=== PATIENT | female | born 1965 | race Two or more races ===

== ENCOUNTER → 2016-11-30 | Outpatient (REF) | payer MEDICAID ==
[2016-12-01 18:19] LABS: CONTROL LINE UCG INT CTR LINE PRESENT
== END ==
LOC: M SFHCCAPE 17:26
PROVIDERS: ATTEND Physician Assistant
DX: R10.2 Pelvic and perineal pain (principal)

== ENCOUNTER → 2017-01-30 | Outpatient (REF) | payer MEDICAID | LOC: M SFHCCAPE 09:51 | PROVIDERS: ATTEND Physician Assistant | DX: R73.01 Impaired fasting glucose (principal) ==

== ENCOUNTER → 2017-01-31 | Outpatient (REF) | payer MEDICAID ==
[2017-01-31 19:25] LABS: ALBUMIN 3.7 GM/DL (3.2-5.2); ALBUMIN/GLOBULIN RATIO 1.03 (1.00-1.93); ALKALINE PHOSPHATASE 81 U/L (45-117); ALT/SGPT 21 U/L (12-78); ANION GAP 6 MEQ/L (8-16); AST/SGOT 17 U/L (15-37); BILIRUBIN,TOTAL 0.5 MG/DL (0.2-1.0); BLOOD UREA NITROGEN 11 MG/DL (7-18); CALCIUM LEVEL 8.2 MG/DL (8.5-10.1); CARBON DIOXIDE LEVEL 26 MEQ/L (21-32); CHLORIDE LEVEL 109 MEQ/L (98-107); CHOLESTEROL LEVEL 199 MG/DL (<200); CREATININE FOR GFR 0.74 MG/DL (0.55-1.02); FREE T4 0.76 NG/DL (0.76-1.46); GLOMERULAR FILTRATION RATE > 60.0 (>58); GLUCOSE, FASTING 83 MG/DL (70-105); POTASSIUM SERUM 4.3 MEQ/L (3.5-5.1); SODIUM LEVEL 141 MEQ/L (136-145); TOTAL PROTEIN 7.3 GM/DL (6.4-8.2); TRIGLYCERIDES LEVEL 229 MG/DL (<150)
[2017-01-31 20:50] LABS: ADD MORPHOLOGY? NO; BASO # 0.1 K/mm3 (0.0-0.2); BASO % 1.7 % (0.0-1.0); EOS # 0.3 K/mm3 (0.0-0.50); EOS % 5.6 % (0.0-3.0); LARGE UNSTAINED CELL # 0.1 K/mm3 (0.0-0.4); LARGE UNSTAINED CELL % 1.7 % (0.0-4.0); LYMPH # 1.7 K/mm3 (1.5-4.5); LYMPH % 32.8 % (24.0-44.0); MEAN CORPUSCULAR HEMOGLOBIN 29.9 pg (27.0-33.0); MEAN CORPUSCULAR HGB CONC 33.7 g/dl (32.0-36.5); MEAN CORPUSCULAR VOLUME 88.7 fl (80.0-96.0); MONO # 0.3 K/mm3 (0.0-0.8); MONO % 5.6 % (0.0-5.0); NEUTROPHILS # 2.6 K/mm3 (1.8-7.7); NEUTROPHILS % 52.6 % (36.0-66.0); PLATELET COUNT, AUTOMATED 345 k/mm3 (150-450)
== END ==
LOC: M SFHCCAPE 08:25
PROVIDERS: ATTEND Physician Assistant
DX: R73.01 Impaired fasting glucose (principal)

== ENCOUNTER → 2017-02-22 | Outpatient (CLI) | payer OTHER ==
--- NOTE | 2017-02-22 11:26 | REP ---
LUMBAR SPINE, FIVE VIEWS: HISTORY: Back pain. There is no acute fracture or subluxation. The L3-4 through L5-S1 intervertebral discs are decreased in height consistent with disc degeneration. Osteophytes are present on L1-4. There is narrowing of the L5-S1 facet joints. IMPRESSION: Degenerative change as described above.
== END ==
LOC: M CLY 10:20
PROVIDERS: ATTEND Nurse Practitioner
DX: M54.5 Low back pain (principal)

== ENCOUNTER → 2017-04-20 | Outpatient (CLI) | payer OTHER ==
--- NOTE | 2017-04-20 12:37 | REP ---
Clinical: Pelvic pain with abnormal uterine bleeding. Technique: Transabdominal pelvic ultrasound followed by transvaginal examination for better evaluation of the endometrium and adnexa. Findings: Bladder is unremarkable and measures 9.6 x 6.4 x 8.3 cm. Heterogeneous anteverted uterus measures 7.9 x 4.2 x 4.9 cm and the endometrial complex measures 3.1 mm thickness. IUD is identified in central satisfactory position. Bilateral ovaries are normal in appearance. Right ovary measures 2.7 x 1.7 x 1.3 cm. Left ovary measures 2.6 x 1.7 x 2.3 cm and includes 1.3 cm dominant follicle. No pelvic fluid or adnexal mass lesions. Impression: Essentially normal pelvic ultrasound. IUD in satisfactory position. Signed by Jann Holliday MD 04/20/2017 12:28 P
== END ==
LOC: M RAD 11:43
PROVIDERS: ATTEND Physician Assistant
DX: R10.2 Pelvic and perineal pain (principal); N93.8 Other specified abnormal uterine and vaginal bleeding

== ENCOUNTER → 2017-04-26 | Outpatient (CLI) | payer OTHER ==
--- NOTE | 2017-04-26 15:29 | REP ---
MR LUMBAR SPINE WITHOUT CONTRAST: HISTORY: Degenerative disc disease. Decreased signal intensity on T2-weighted images is present in the L3-4 through L5-S1 intervertebral discs. The L3-4 and L5-S1 intervertebral discs are decreased in height. These findings are consistent with disc degeneration. There is no disc bulge or herniation at the L1-2 through L4-5 levels. The nerves exit the neural foramina without compression. A diffuse disc bulge is present at the L5-S1 level. There is no thecal sac compression. There is hypertrophy of the posterior articulating facets. There is compression of the right L5 nerve in the neural foramen. The left L5 nerve exits the neural foramen without compression. The conus medullaris is normal in appearance terminating at the level of the L1-2 intervertebral disc. Increased signal intensity on T2 weighted images is present in the endplates of the L5 and S1 vertebral bodies. This represents degenerative change. A hemangioma is present in the L2 vertebral body. IMPRESSION: Diffuse disc bulge at the L5-S1 level without thecal sac compression. There is compression of the right L5 nerve in the neural foramen. Signed by Alvaro Taylor MD 04/26/2017 03:34 P
== END ==
LOC: M RAD 13:43
PROVIDERS: ATTEND Physician Assistant
DX: M51.36 Other intervertebral disc degeneration, lumbar region (principal); M51.27 Other intervertebral disc displacement, lumbosacral region

== ENCOUNTER → 2017-06-01 | Outpatient (REF) | payer OTHER, MEDICAID | LOC: M SFHCWAGY 13:48 | DX: Z12.4 Encounter for screening for malignant neoplasm of cervix (principal) ==

== ENCOUNTER 2017-06-20 09:11 | Day surgery (SDC) | payer OTHER ==
[2017-06-20] MEDS: NS 1,000 ML IV (09:00)
[~2017-06-20 09:11] MED LIST: LIDOCAINE 2% INJ 100 MG/5 ML SDV (FOR ANES.) As Ordered; PROPOFOL 500 MG/50 ML VIAL As Ordered
[2017-06-20] MEDS ORDERED: PHENYLephrine HCL 500 MCG/5 ML (100MCG/ML) SYRINGE (J2370) As Ordered (10:05)
== END 2017-06-20 11:19 | disposition home or self-care (01) ==
LOC: M OPP 09:11
DX: Z12.11 Encounter for screening for malignant neoplasm of colon (principal); Z86.010 Personal history of colon polyps; C18.9 Malignant neoplasm of colon, unspecified; D12.2 Benign neoplasm of ascending colon; D12.3 Benign neoplasm of transverse colon; D12.5 Benign neoplasm of sigmoid colon; K57.30 Diverticulosis of large intestine without perforation or abscess without bleeding; R12 Heartburn; K21.9 Gastro-esophageal reflux disease without esophagitis; M19.90 Unspecified osteoarthritis, unspecified site; R21 Rash and other nonspecific skin eruption; F32.9 Major depressive disorder, single episode, unspecified; K59.00 Constipation, unspecified; R51 Headache; F17.210 Nicotine dependence, cigarettes, uncomplicated; Z79.899 Other long term (current) drug therapy; Z80.0 Family history of malignant neoplasm of digestive organs
CPT/HCPCS: 45385

== ENCOUNTER → 2017-06-28 | Outpatient (CLI) | payer OTHER ==
[~2017-06-28] MED LIST changes: +GLUCAGON FOR INJ 1 MG VIAL (J1610) As Ordered; +ISOVUE-370 76% 100ML VIAL (Q9967) As Ordered; -LIDOCAINE 2% INJ 100 MG/5 ML SDV (FOR ANES.) As Ordered; -PROPOFOL 500 MG/50 ML VIAL As Ordered; +VoLumen 0.1% SUSPENSION 450ML BOTTLE As Ordered
[2017-06-29 11:10] LABS: CARCINOEMBRYONIC ANTIGEN 1.9 NG/ML (<2.5)
== END ==
LOC: M LAB 10:42
DX: C18.2 Malignant neoplasm of ascending colon (principal); K80.20 Calculus of gallbladder without cholecystitis without obstruction
CPT/HCPCS: Q9967

== ENCOUNTER 2017-07-02 07:43 | Inpatient (IN) | payer OTHER ==
[2017-07-02] MEDS: ERTAPENEM SODIUM 1 GM in NS 50 ML IV (08:00)
[2017-07-02] MEDS: LR 1,000 ML IV ×3 (08:00→13:15)
[2017-07-02] MEDS ORDERED: ERTAPENEM 1 GM INJ (INVanz) (J1335) As Ordered (08:14)
[2017-07-02] MEDS ORDERED: HEPARIN SOD (PORCINE) 5000 UNITS/ML VIAL As Ordered (08:36)
[2017-07-02] MEDS ORDERED: SCOPOLAMINE 1MG TRANSDERMAL PATCH As Ordered (08:38)
[2017-07-02] MEDS ORDERED: ONDANSETRON 4MG/2ML VIAL (J2405) As Ordered ×2 (08:38→10:33)
[2017-07-02] MEDS ORDERED: PROPOFOL 200 MG/20 ML VIAL As Ordered (08:39)
[2017-07-02] MEDS ORDERED: dexameTHASONE 4 MG/ML 1ML VIAL (J1100) As Ordered (08:39)
[2017-07-02] MEDS ORDERED: ROCURONIUM BROMIDE 50 MG/5 ML VIAL As Ordered ×2 (08:39→10:53)
[2017-07-02] MEDS ORDERED: fentaNYL 250 MCG/5 ML INJECTION (J3010) As Ordered (08:39)
[2017-07-02] MEDS ORDERED: MIDAZOLAM INJ 2 MG/2 ML VIAL (J2250) As Ordered (08:40)
[2017-07-02] MEDS ORDERED: LIDOCAINE 2% INJ 100 MG/5 ML SYRINGE As Ordered (08:42)
[2017-07-02] MEDS: ALVIMOPAN 12 MG CAPSULE (ENTEREG) PO ×2 (08:58→21:43)
[2017-07-02] MEDS: ONDANSETRON 4MG/2ML VIAL (J2405) IV ×2 (08:58→09:15)
[2017-07-02 09:05] LABS: CONTROL LINE UCG INT CTR LINE PRESENT; URINE PREG TEST NEGATIVE (NEGATIVE)
[2017-07-02] MEDS: SCOPOLAMINE 1MG TRANSDERMAL PATCH TOP (09:15)
[2017-07-02] MEDS: HEPARIN SOD (PORCINE) 5000 UNITS/ML VIAL SQ (09:30)
[2017-07-02] MEDS: LIDOCAINE 1% MDV 20ML VIAL As Ordered (09:46)
[2017-07-02] MEDS: BUPIVACAINE HCL 0.25% 10 ML VIAL As Ordered ×2 (09:46→09:50)
[2017-07-02] MEDS ORDERED: NEOSTIGMINE 10 MG/10 ML VIAL (J2710) As Ordered (10:33)
[2017-07-02] MEDS ORDERED: diphenhydrAMINE INJ 50MG/ML VIAL (J1200) As Ordered (10:33)
[2017-07-02] MEDS ORDERED: GLYCOPYRROLATE INJ 0.2 MG/ML 2 ML VIAL As Ordered (10:33)
[2017-07-02] MEDS ORDERED: HYDROmorphone HCL 2 MG/ML 1ML VIAL (J1170) As Ordered (10:35)
[2017-07-02] MEDS ORDERED: KETOROLAC 60 MG/2 ML VIAL (J1885) As Ordered (12:10)
[2017-07-02] MEDS: BUPIVACAINE LIPOSOME/PF 1.3% 20 ML VIAL (13.3MG/ML)(EXPAREL) As Ordered (12:30)
[2017-07-02] MEDS ORDERED: ONDANSETRON 4MG/2ML VIAL (J2405) IV ×2 (13:00→13:15)
[2017-07-02] MEDS ORDERED: ACETAMINOPHEN TAB 650MG DOSE (2X325MG) PO (13:00)
[2017-07-02] MEDS ORDERED: MORPHINE 4 MG/ML 1ML VIAL (J2270) IV (13:00)
[2017-07-02] MEDS ORDERED: CYCLOBENZAPRINE 10 MG TAB PO (13:00)
[2017-07-02] MEDS ORDERED: OMEPRAZOLE 20 MG CAP PO (13:00)
[2017-07-02] MEDS: HYDROmorphone HCL 1 MG/ML SYRINGE (J1170) IV ×2 (13:08→13:20)
[2017-07-02] MEDS ORDERED: fentaNYL 100 MCG/2 ML INJECTION (J3010) IV (13:15)
[2017-07-02] MEDS: NORCO, ANEXSIA 5/325MG TABLET (HYDROcodone/ACETAMINOPHEN) PO (13:48)
[2017-07-02] MEDS: KETOROLAC 30 MG/ML VIAL (J1885) IV (17:26)
[2017-07-02] MEDS: HEPARIN SOD (PORCINE) 5000 UNITS/ML VIAL SC (21:43)
[2017-07-03] MEDS: LR 1,000 ML IV ×2 (01:05→08:51)
[2017-07-03] MEDS: KETOROLAC 30 MG/ML VIAL (J1885) IV ×3 (01:07→20:02)
[2017-07-03] MEDS: NORCO, ANEXSIA 5/325MG TABLET (HYDROcodone/ACETAMINOPHEN) PO ×2 (02:00→06:38)
[2017-07-03 06:29] LABS: BASO % 0.3 % (0.0-1.0); HEMATOCRIT 35.4 % (36.0-47.0); IMMATURE GRANULOCYTE % 0.3 % (0-3.0); LYMPH # 2.1 10^3/uL (1.5-4.5); LYMPH % 20.8 % (24.0-44.0); MEAN CORPUSCULAR HEMOGLOBIN 29.5 pg (27.0-33.0); MEAN CORPUSCULAR HGB CONC 33.9 g/dl (32.0-36.5); MONO # 0.9 10^3/uL (0.0-0.8); MONO % 8.7 % (0.0-5.0); NEUTROPHILS # 6.9 10^3/uL (1.8-7.7); NEUTROPHILS % 69.9 % (36.0-66.0); PLATELET COUNT, AUTOMATED 273 10^3/uL (150-450); RED BLOOD COUNT 4.07 10^6/uL (4.00-5.40); RED CELL DISTRIBUTION WIDTH 13.3 % (11.5-14.5); WHITE BLOOD COUNT 9.9 10^3/uL (4.0-10.0)
[2017-07-03] MEDS: HEPARIN SOD (PORCINE) 5000 UNITS/ML VIAL SC ×3 (06:36→21:14)
[2017-07-03 06:43] LABS: ANION GAP 6 MEQ/L (8-16); BLOOD UREA NITROGEN 5 MG/DL (7-18); CALCIUM LEVEL 7.7 MG/DL (8.5-10.1); CARBON DIOXIDE LEVEL 27 MEQ/L (21-32); CHLORIDE LEVEL 110 MEQ/L (98-107); CREATININE FOR GFR 0.74 MG/DL (0.55-1.30); GLOMERULAR FILTRATION RATE > 60.0 (>58); GLUCOSE, FASTING 103 MG/DL (70-100); POTASSIUM SERUM 4.1 MEQ/L (3.5-5.1); SODIUM LEVEL 143 MEQ/L (136-145)
[2017-07-03] MEDS: INFLUENZA QUADRIVALENT PF VACCINE 0.5ML SYRINGE (90686) IM (09:22)
[2017-07-03] MEDS: ALVIMOPAN 12 MG CAPSULE (ENTEREG) PO ×2 (09:22→21:13)
[2017-07-04] MEDS: NORCO, ANEXSIA 5/325MG TABLET (HYDROcodone/ACETAMINOPHEN) PO ×4 (00:25→22:57)
[2017-07-04] MEDS: HEPARIN SOD (PORCINE) 5000 UNITS/ML VIAL SC ×3 (05:27→22:12)
[2017-07-04] MEDS: ALVIMOPAN 12 MG CAPSULE (ENTEREG) PO ×2 (09:04→20:10)
[2017-07-04] MEDS: KETOROLAC 30 MG/ML VIAL (J1885) IV (11:00)
[2017-07-05] MEDS: NORCO, ANEXSIA 5/325MG TABLET (HYDROcodone/ACETAMINOPHEN) PO ×2 (05:13→09:26)
[2017-07-05] MEDS: HEPARIN SOD (PORCINE) 5000 UNITS/ML VIAL SC (05:14)
[2017-07-05 06:41] LABS: BASO # 0.1 10^3/uL (0.0-0.2); BASO % 0.7 % (0.0-1.0); EOS # 0.3 10^3/uL (0.0-0.50); EOS % 4.1 % (0.0-3.0); HEMOGLOBIN 11.4 g/dl (12.0-16.0); IMMATURE GRANULOCYTE % 0.3 % (0-3.0); LYMPH # 1.9 10^3/uL (1.5-4.5); MEAN CORPUSCULAR HEMOGLOBIN 29.1 pg (27.0-33.0); MEAN CORPUSCULAR HGB CONC 33.5 g/dl (32.0-36.5); MEAN CORPUSCULAR VOLUME 86.7 fl (80.0-96.0); MONO # 0.5 10^3/uL (0.0-0.8); MONO % 7.2 % (0.0-5.0); NEUTROPHILS # 4.4 10^3/uL (1.8-7.7); NEUTROPHILS % 61.7 % (36.0-66.0); PLATELET COUNT, AUTOMATED 258 10^3/uL (150-450); RED BLOOD COUNT 3.92 10^6/uL (4.00-5.40); RED CELL DISTRIBUTION WIDTH 13.2 % (11.5-14.5); WHITE BLOOD COUNT 7.1 10^3/uL (4.0-10.0)
[2017-07-05] MEDS: ALVIMOPAN 12 MG CAPSULE (ENTEREG) PO (08:48)
== END 2017-07-05 10:24 | disposition home or self-care (01) | DRG 221 ==
LOC: M OR 07:43 → M MSPAV 15:19
PROC: 0DTF4ZZ Resection of Right Large Intestine, Percutaneous Endoscopic Approach (ICD-10-PCS; principal; 2017-07-02 08:30)
DX: C18.2 Malignant neoplasm of ascending colon (principal); F17.200 Nicotine dependence, unspecified, uncomplicated; K21.9 Gastro-esophageal reflux disease without esophagitis

== ENCOUNTER → 2017-07-06 | Outpatient (CLI) | payer OTHER | LOC: M RAD 11:53 | DX: C18.9 Malignant neoplasm of colon, unspecified (principal) | CPT/HCPCS: 71046 ==

== ENCOUNTER → 2017-07-06 | Outpatient (REF) | payer OTHER ==
[2017-07-06 13:35] LABS: INR 0.88
[2017-07-06 13:36] LABS: PARTIAL THROMBOPLASTIN TIME 27.7 SECONDS (26.8-37.9)
[2017-07-06 13:51] LABS: CARCINOEMBRYONIC ANTIGEN 1.5 NG/ML (<2.5)
== END ==
LOC: M LAB REF 12:41
DX: C18.9 Malignant neoplasm of colon, unspecified (principal)

== ENCOUNTER → 2017-07-10 | Outpatient (CLI) | payer OTHER ==
[~2017-07-10] MED LIST changes: -GLUCAGON FOR INJ 1 MG VIAL (J1610) As Ordered; +ISOVUE-300 61% 50ML VIAL (Q9967) As Ordered; -ISOVUE-370 76% 100ML VIAL (Q9967) As Ordered; +LIDOCAINE 2% MDV 20 ML VIAL As Ordered; +MIDAZOLAM INJ 2 MG/2 ML VIAL (J2250) As Ordered; -VoLumen 0.1% SUSPENSION 450ML BOTTLE As Ordered; +ceFAZolin 1GM INJ (J0690 PER 500MG) As Ordered; +fentaNYL 100 MCG/2 ML INJECTION (J3010) As Ordered
== END | disposition home or self-care (01) ==
LOC: M IRPRO 12:38
DX: C18.9 Malignant neoplasm of colon, unspecified (principal)
CPT/HCPCS: 36561

== ENCOUNTER → 2017-09-24 | Outpatient (REF) | payer OTHER, MEDICAID ==
[2017-09-24 14:06] LABS: MAGNESIUM LEVEL 2.4 MG/DL (1.8-2.4)
== END ==
LOC: M LAB REF 13:31
DX: C18.2 Malignant neoplasm of ascending colon (principal)

== ENCOUNTER → 2017-12-05 | Outpatient (REF) | payer OTHER | LOC: M SFHCCAPE 15:05 | DX: J02.9 Acute pharyngitis, unspecified (principal) ==

== ENCOUNTER → 2018-02-14 | Outpatient (REF) | payer OTHER | LOC: M SFHCCAPE 11:09 | DX: R10.13 Epigastric pain (principal); R19.7 Diarrhea, unspecified; R11.2 Nausea with vomiting, unspecified; K80.20 Calculus of gallbladder without cholecystitis without obstruction ==

== ENCOUNTER → 2018-02-14 | Outpatient (CLI) | payer OTHER ==
[2018-02-14 14:19] LABS: BASO # 0.1 10^3/uL (0.0-0.2); BASO % 1.3 % (0.0-1.0); EOS # 0.2 10^3/uL (0.0-0.50); EOS % 4.4 % (0.0-3.0); HEMATOCRIT 46.2 % (36.0-47.0); HEMOGLOBIN 15.2 g/dl (12.0-15.5); LYMPH # 1.6 10^3/uL (1.5-4.5); LYMPH % 34.9 % (24.0-44.0); MEAN CORPUSCULAR HEMOGLOBIN 30.8 pg (27.0-33.0); MEAN CORPUSCULAR HGB CONC 32.9 g/dl (32.0-36.5); MEAN CORPUSCULAR VOLUME 93.7 fl (80.0-96.0); MONO # 0.5 10^3/uL (0.0-0.8); MONO % 9.8 % (0.0-5.0); NEUTROPHILS # 2.3 10^3/uL (1.8-7.7); NEUTROPHILS % 49.6 % (36.0-66.0); PLATELET COUNT, AUTOMATED 238 10^3/uL (150-450); RED BLOOD COUNT 4.93 10^6/uL (4.00-5.40); RED CELL DISTRIBUTION WIDTH 12.8 % (11.5-14.5); WHITE BLOOD COUNT 4.6 10^3/uL (4.0-10.0)
[2018-02-14 14:55] LABS: ALBUMIN 3.8 GM/DL (3.2-5.2); ALBUMIN/GLOBULIN RATIO 0.95 (1.00-1.93); ALKALINE PHOSPHATASE 168 U/L (45-117); ALT/SGPT 43 U/L (12-78); AMYLASE 29 U/L (25-115); ANION GAP 8 MEQ/L (8-16); AST/SGOT 36 U/L (7-37); BILIRUBIN,TOTAL 0.6 MG/DL (0.2-1.0); BLOOD UREA NITROGEN 11 MG/DL (7-18); CALCIUM LEVEL 8.8 MG/DL (8.5-10.1); CARBON DIOXIDE LEVEL 26 MEQ/L (21-32); CHLORIDE LEVEL 107 MEQ/L (98-107); CREATININE FOR GFR 0.84 MG/DL (0.55-1.30); GLOMERULAR FILTRATION RATE > 60.0 (>51); GLUCOSE, FASTING 86 MG/DL (70-100); LIPASE 272 U/L (73-393); POTASSIUM SERUM 4.6 MEQ/L (3.5-5.1); SODIUM LEVEL 141 MEQ/L (136-145); THYROID STIMULATING HORMONE 0.415 uIU/ML (0.358-3.740); TOTAL PROTEIN 7.8 GM/DL (6.4-8.2)
== END ==
LOC: M RAD 13:08
DX: R10.13 Epigastric pain (principal); R19.7 Diarrhea, unspecified; R11.2 Nausea with vomiting, unspecified; K80.20 Calculus of gallbladder without cholecystitis without obstruction
CPT/HCPCS: 76705

== ENCOUNTER 2018-03-15 06:49 | Day surgery (SDC) | payer OTHER ==
[2018-03-15] MEDS ORDERED: LR 1,000 ML IV ×2 (07:00→11:30)
[2018-03-15] MEDS ORDERED: fentaNYL 250 MCG/5 ML INJECTION (J3010) As Ordered (08:35)
[2018-03-15] MEDS ORDERED: PROPOFOL 200 MG/20 ML VIAL As Ordered (08:35)
[2018-03-15] MEDS ORDERED: LIDOCAINE 2% INJ 100 MG/5 ML SDV (FOR ANES.) As Ordered (08:35)
[2018-03-15] MEDS ORDERED: ROCURONIUM BROMIDE 50 MG/5 ML VIAL As Ordered (08:35)
[2018-03-15] MEDS ORDERED: dexameTHASONE 4 MG/ML 1ML VIAL (J1100) As Ordered (08:35)
[2018-03-15] MEDS ORDERED: ONDANSETRON 4MG/2ML VIAL (J2405) As Ordered (08:35)
[2018-03-15] MEDS ORDERED: MIDAZOLAM INJ 2 MG/2 ML VIAL (J2250) As Ordered (08:36)
[2018-03-15] MEDS: AMPICILLIN SOD/SULBACTAM SOD 3 GM in D5W MINI-BAG PLUS 100 ML IV (09:05)
[2018-03-15] MEDS ORDERED: NEOSTIGMINE 10 MG/10 ML VIAL (J2710) As Ordered (09:36)
[2018-03-15] MEDS ORDERED: GLYCOPYRROLATE INJ 0.2 MG/ML 2 ML VIAL As Ordered (09:36)
[2018-03-15] MEDS ORDERED: KETOROLAC 60 MG/2 ML VIAL (J1885) As Ordered (09:36)
[2018-03-15] MEDS ORDERED: HYDROmorphone HCL 2 MG/ML 1ML VIAL (J1170) As Ordered (09:36)
[2018-03-15] MEDS: BUPIVACAINE HCL 0.25% 30 ML VIAL As Ordered (09:40)
[2018-03-15] MEDS: LIDOCAINE 1% SDV INJ 30 ML VIAL As Ordered (09:40)
[2018-03-15] MEDS ORDERED: NORCO, ANEXSIA 5/325MG TABLET (HYDROcodone/ACETAMINOPHEN) PO ×2 (11:30)
[2018-03-15] MEDS ORDERED: ONDANSETRON 4MG/2ML VIAL (J2405) IV ×2 (11:30)
[2018-03-15] MEDS ORDERED: KETOROLAC 30 MG/ML VIAL (J1885) IV (11:30)
[2018-03-15] MEDS ORDERED: MORPHINE 10 MG/ML 1ML VIAL (J2270) IV (11:30)
[2018-03-15] MEDS ORDERED: PERCOCET 5MG/325MG TAB As Ordered (11:48)
[2018-03-15] MEDS: fentaNYL 100 MCG/2 ML INJECTION (J3010) IV ×2 (11:50→11:55)
[2018-03-15] MEDS: PERCOCET 5MG/325MG TAB PO ×2 (11:50→13:32)
== END 2018-03-15 14:10 | disposition home or self-care (01) ==
LOC: M SDC 06:49
DX: K80.10 Calculus of gallbladder with chronic cholecystitis without obstruction (principal); C18.2 Malignant neoplasm of ascending colon; M12.9 Arthropathy, unspecified; M51.9 Unspecified thoracic, thoracolumbar and lumbosacral intervertebral disc disorder; F32.9 Major depressive disorder, single episode, unspecified; R51 Headache; R05 Cough; R06.83 Snoring; K21.9 Gastro-esophageal reflux disease without esophagitis; K59.1 Functional diarrhea; Z91.048 Other nonmedicinal substance allergy status; Z72.0 Tobacco use; Z86.010 Personal history of colon polyps; Z92.21 Personal history of antineoplastic chemotherapy; Z97.5 Presence of (intrauterine) contraceptive device
CPT/HCPCS: 47562

== ENCOUNTER → 2018-04-26 | Outpatient (CLI) | payer OTHER ==
[~2018-04-26] MED LIST changes: +GASTROGRAFIN SOLUTION 30ML (Q9963) As Ordered; -ISOVUE-300 61% 50ML VIAL (Q9967) As Ordered; +ISOVUE-370 76% 100ML VIAL (Q9967) As Ordered; -LIDOCAINE 2% MDV 20 ML VIAL As Ordered; -MIDAZOLAM INJ 2 MG/2 ML VIAL (J2250) As Ordered; -ceFAZolin 1GM INJ (J0690 PER 500MG) As Ordered; -fentaNYL 100 MCG/2 ML INJECTION (J3010) As Ordered
== END ==
LOC: M RAD 15:34
DX: C18.9 Malignant neoplasm of colon, unspecified (principal)
CPT/HCPCS: Q9963

== ENCOUNTER 2018-08-28 07:03 | Day surgery (SDC) | payer OTHER ==
[~2018-08-28] VITALS: Ht 152.4 cm; Wt 76.7 kg
[~2018-08-28 07:03] MED LIST changes: +AUGM875T28 PO; +CLAR10CA3 PO; +CYCL10TA PO; +GABA-1171 PO; -GASTROGRAFIN SOLUTION 30ML (Q9963) As Ordered; +HYDR-3715 PO; +HYDR25OIN TOP; +IBUP200C25 PO; +IMOD2TAB16 PO; -ISOVUE-370 76% 100ML VIAL (Q9967) As Ordered; +MIRE1IUD IU; +NS 1,000 ML IV ONE; +OMEP20CA3 PO; +TYLE325T5 PO
[2018-08-28] MEDS ORDERED: LIDOCAINE 2% MDV 20 ML VIAL As Ordered ONE (08:23)
[2018-08-28] MEDS ORDERED: PROPOFOL 200 MG/20 ML VIAL As Ordered ONE (08:23)
--- NOTE | 2018-08-28 08:51 | ROOR ---
Patient Name: Cheryl Rivera Procedure Date: 08/28/2018 8:02 AM Date of : 1965 Age: 52 Room: [facility] Gender: Female Note Status: Finalized Procedure: Colonoscopy Indications: High risk colon cancer surveillance: Personal history of colon cancer Providers: Isiaah Gruber MD Referring MD: EARL Rendon pa-c Requesting Provider: Medicines: Monitored Anesthesia Care Complications: No immediate complications. Procedure: Pre-Anesthesia Assessment: - Prior to the procedure, a History and Physical was performed, and patient medications and allergies were reviewed. The patient is competent. The risks and benefits of the procedure and the sedation options and risks were discussed with the patient. All questions were answered and informed consent was obtained. Patient identification and proposed procedure were verified by the physician, the nurse and the anesthesiologist in the procedure room. Mental Status Examination: alert and oriented. Airway Examination: normal oropharyngeal airway and neck mobility. Respiratory Examination: clear to auscultation. CV Examination: normal. Prophylactic Antibiotics: The patient does not require prophylactic antibiotics. Prior Anticoagulants: The patient has taken no previous anticoagulant or antiplatelet agents. ASA Grade Assessment: III - A patient with severe systemic disease. After reviewing the risks and benefits, the patient was deemed in satisfactory condition to undergo the procedure. The anesthesia plan was to use monitored anesthesia care (MAC). Immediately prior to administration of medications, the patient was re-assessed for adequacy to receive sedatives. The heart rate, respiratory rate, oxygen saturations, blood pressure, adequacy of pulmonary ventilation, and response to care were monitored throughout the procedure. The physical status of the patient was re-assessed after the procedure. The Colonoscope was introduced through the anus and advanced to the ileocolonic anastomosis. The colonoscopy was performed without difficulty. The patient tolerated the procedure well. The quality of the bowel preparation was adequate to identify polyps ( few areas with solid food debris ). Findings: There was evidence of a prior [id number] ileo-colonic anastomosis in the transverse colon. This was patent and was characterized by healthy appearing mucosa. The anastomosis was traversed. A few small-mouthed diverticula were found in the sigmoid colon and descending colon. There was evidence of an impacted diverticulum. The colon (entire examined portion) appeared normal. This was biopsied with a cold forceps for evaluation of microscopic colitis. Estimated blood loss was minimal. The retroflexed view of the distal rectum and anal verge was normal and showed no anal or rectal abnormalities. Impression: - Patent [id number] ileo-colonic anastomosis, characterized by healthy appearing mucosa. - Mild diverticulosis in the sigmoid colon and in the descending colon. There was evidence of an impacted diverticulum. - The entire examined colon is normal. Biopsied. - The distal rectum and anal verge are normal on retroflexion view. Recommendation: - Discharge patient to home (ambulatory). - High fiber diet indefinitely. - Telephone my office for pathology results in 1 week. - Repeat colonoscopy in 3 years for surveillance. Isaiah Gruber MD Isaiah Gruber MD 08/28/2018 8:50:40 AM Electronically signed by Isaiah Gruber MD Number of Addenda: 0 Note Initiated On: 08/28/2018 8:02 AM Estimated Blood Loss: Estimated blood loss was minimal.
[2018-08-28 09:03] VITALS: BP 129/81
== END 2018-08-28 09:12 | disposition home or self-care (01) ==
LOC: M OPP 07:03
PROVIDERS: ATTEND Surgery
DX: K57.30 Diverticulosis of large intestine without perforation or abscess without bleeding (principal); Z98.0 Intestinal bypass and anastomosis status; Z85.038 Personal history of other malignant neoplasm of large intestine

== ENCOUNTER → 2018-09-26 | Outpatient (CLI) | payer OTHER ==
[~2018-09-26] MED LIST changes: -NS 1,000 ML IV ONE
--- NOTE | 2018-09-27 06:07 | REP ---
Clinical: Pelvic pain . Technique: Transabdominal pelvic ultrasound followed by transvaginal examination for better evaluation of the endometrium and adnexa with color Doppler evaluation of the ovaries. Findings: Bladder is unremarkable and measures 7.2 x 7.5 x 9.1 cm . Normal anteverted uterus measures 9.2 x 2.7 x 6.3 cm . The endometrial complex measures 3.5 mm thickness. IUD identified in satisfactory position. Few Nabothian cysts noted in the cervical region. Left ovary is normal in appearance and vascularity without torsion and measures 2.1 x 1.3 x 1.5 cm; RI 0.40. The right ovary measures 13.6 x 10.2 x 12.5 cm and includes 12.5 x 12.3 x 13.2 cm complex vascular mass with scattered cystic components. No pelvic free fluid. Impression: 1. Complex vascular mass in the right ovary. 2. Normal uterus and left ovary.
== END ==
LOC: M WHC 09:45
PROVIDERS: ATTEND Nurse Practitioner Women's Health
DX: N83.201 Unspecified ovarian cyst, right side (principal)

== ENCOUNTER → 2018-10-01 | Outpatient (CLI) | payer OTHER ==
[~2018-10-01] MED LIST changes: +LOPE2TAB11 PO; +OXYC1TAB23 PO
== END ==
LOC: M SMT 11:13
PROVIDERS: ATTEND Specialist
DX: N83.291 Other ovarian cyst, right side (principal)

== ENCOUNTER 2018-10-21 22:41 | Emergency (ER) | payer OTHER ==
[~2018-10-21] VITALS: Ht 152.4 cm; Wt 79.5 kg
[2018-10-21] MEDS ORDERED: NS 1,000 ML IV ONE (23:15)
[2018-10-21] MEDS ORDERED: ONDANSETRON 4MG/2ML VIAL (J2405) IV ONE (23:15)
[2018-10-21] MEDS ORDERED: MORPHINE 4 MG/ML 1ML VIAL/SYRINGE (J2270) IV PRN (23:15)
[2018-10-21 23:31] LABS: BASO # 0.1 10^3/uL (0.0-0.2); BASO % 0.8 % (0.0-1.0); EOS # 0.2 10^3/uL (0.0-0.50); HEMATOCRIT 41.9 % (36.0-47.0); HEMOGLOBIN 14.4 g/dl (12.0-15.5); LYMPH # 3.4 10^3/uL (1.5-4.5); LYMPH % 34.3 % (24.0-44.0); MEAN CORPUSCULAR HEMOGLOBIN 30.1 pg (27.0-33.0); MEAN CORPUSCULAR HGB CONC 34.4 g/dl (32.0-36.5); MEAN CORPUSCULAR VOLUME 87.5 fl (80.0-96.0); MONO # 0.7 10^3/uL (0.0-0.8); MONO % 6.6 % (0.0-5.0); NEUTROPHILS # 5.6 10^3/uL (1.8-7.7); NEUTROPHILS % 56.1 % (36.0-66.0); PLATELET COUNT, AUTOMATED 287 10^3/uL (150-450); RED BLOOD COUNT 4.79 10^6/uL (4.00-5.40)
[2018-10-22 00:11] LABS: ALBUMIN 3.5 GM/DL (3.2-5.2); BILIRUBIN,DIRECT 0.2 MG/DL (0.0-0.2); BILIRUBIN,TOTAL 0.7 MG/DL (0.2-1.0); TOTAL PROTEIN 7.2 GM/DL (6.4-8.2)
[2018-10-22] MEDS ORDERED: ISOVUE-370 76% 100ML VIAL (Q9967) As Ordered ONE (00:52)
--- NOTE | 2018-10-22 02:53 | REPVR ---
EXAM: US Pelvis Complete, Transabdominal and US Pelvis, Transvaginal and US Duplex Artery and Vein, Ovaries, Complete EXAM DATE/TIME: 10/21/2018 12:19 AM CLINICAL HISTORY: 52 years old, female; Pelvic pain. Right adnexal pain. Known right ovarian mass. TECHNIQUE: Imaging protocol: Real-time transabdominal and transvaginal pelvic ultrasound (complete) with image documentation. Transvaginal imaging was used for better evaluation of the endometrium and adnexa. Real-time duplex ultrasound scan of the arterial and venous flow of the ovaries with B-mode, color Doppler flow and spectral waveform analysis. COMPARISON: CT ABD/PEL W/IV CONTRAST ONLY 10/22/2018 12:49:26 AM PELVIS NON-OB COMPLETE US 09/26/2018 8:[address] ABD PELVIS WITH CONTRAST 04/26/2018 5:39:08 PM US PELVIC NON-OB COMPLETE 04/20/2017 11:55:49 AM FINDINGS: Uterus/cervix: The anteverted uterus measures 9.1 cm x 3.5 cm x 4.9 cm. No myometrial mass is noted. There is an intrauterine device in satisfactory position in the endometrial canal. The endometrium is homogeneous in appearance and measures 5 mm in thickness. Right adnexa: There is a complex cystic and solid mass in the right ovary that measures approximately 18.3 cm x 12.7 cm x 17.8 cm and has increased in size from 13.6 cm x 10.2 cm x 12.5 cm since the prior pelvic ultrasound on 09/26/2018 and has developed since the prior CT scan on 04/26/2018. The arterial and venous color Doppler flow and spectral waveforms within the right ovary are within normal limits, without evidence for right ovarian torsion. Left adnexa: The left ovary is normal in appearance. No left ovarian cyst or left adnexal mass is noted. The left ovary measures 2.8 cm x 1.8 cm x 2.3 cm. The arterial and venous color Doppler flow and spectral waveforms within the left ovary are within normal limits, without evidence for left ovarian torsion. Free fluid: There is a small amount of free fluid in the cul-de-sac and left adnexal region. Bladder: Unremarkable. IMPRESSION: 1. 18.3 cm x 12.7 cm x 17.8 cm complex cystic and solid mass in the right ovary that has increased in size compared to the prior pelvic ultrasound on 09/26/2018 and has developed since the prior CT scan on 04/26/2018 and is most compatible with a right ovarian tumor. 2. Small amount of free fluid in the pelvis. Electronically signed by: Yeyo Adler On 10/22/2018 02:53:48 AM
--- NOTE | 2018-10-22 02:53 | REPVR ---
EXAM: CT Abdomen and Pelvis With Contrast EXAM DATE/TIME: 10/22/2018 12:47 AM CLINICAL HISTORY: 52 years old, female; Right lower quadrant abdominal pain. Known right ovarian mass. TECHNIQUE: Imaging protocol: Axial computed tomography images of the abdomen and pelvis with intravenous contrast. Coronal and sagittal reformatted images were created and reviewed. Radiation optimization: All CT scans at this facility use at least one of these dose optimization techniques: automated exposure control; mA and/or kV adjustment per patient size (includes targeted exams where dose is matched to clinical indication); or iterative reconstruction. Contrast material: ISO; Contrast volume: 100 ml; Contrast route: AC; COMPARISON: US PELVIC NON-OB COMPLETE 10/21/2018 11:46:16 PM US PELVIS NON-OB COMPLETE 09/26/2018 8:55:[address] ABD PELVIS WITH CONTRAST 04/26/2018 5:[address] ABD PELVIS WITH CONTRAST 06/28/2017 1:06:09 PM FINDINGS: Lungs: There is mild atelectasis or scarring in the lingula. Heart: No cardiomegaly or pericardial effusion is noted. ABDOMEN: Liver: There is a 1.9 cm enhancing lesion in the inferior lateral segment 3 of the left hepatic lobe, which is stable compared to the prior CT scans on 04/26/2018 and 06/28/2017 and was previously characterized as a hemangioma. There is increased attenuation in the inferior lateral segment 3 of the left hepatic lobe around the hemangioma, which is compatible with a focal hyperperfusion abnormality (transient hepatic attenuation difference). There is an 8 mm calcification in the posterior inferior segment 6 of the right hepatic lobe, which is unchanged compared to the prior CT scan on 04/26/2018. No new liver lesions are noted. Gallbladder and bile ducts: There has been a cholecystectomy. There is no fluid collection in the gallbladder fossa. No dilation of the bile ducts is noted. Pancreas: Normal. No ductal dilation. Spleen: Normal. No splenomegaly is noted. Incidental note is made of a small accessory spleen. Adrenals: Normal. No mass. Kidneys and ureters: The kidneys are normal in appearance. No renal lesion is identified. No calculi are seen in the kidneys or ureters. There is no hydronephrosis or hydroureter. Stomach and bowel: Postoperative changes are noted from the right hemicolectomy with an ileocolonic anastomosis. There is colonic diverticulosis without evidence for diverticulitis. No bowel obstruction is noted. Appendix: The appendix has been removed. PELVIS: Bladder: Unremarkable. No calculi are noted in the decompressed bladder. Reproductive: There is an intrauterine device in satisfactory position in the endometrial canal. The uterus is anteverted. The left ovary is unremarkable. There is a complex cystic and solid right ovarian mass that measures 16.2 cm x 13.2 cm x 15.1 cm, which has developed since the prior CT scan on 04/26/2018 and is most compatible with a right ovarian tumor. No calcifications or fatty components are seen within the ovarian mass. ABDOMEN and PELVIS: Intraperitoneal space: There is a small amount of ascites in the abdomen and pelvis. No intraperitoneal free air is noted. Bones/joints: The imaged bony structures are intact. There is no suspicious osteolytic or osteoblastic lesion. There are degenerative changes in the lumbar spine. Soft tissues: There is a midline vertical incision scar in the anterior abdominal wall. There is a small amount of fluid in the soft tissues just the left of midline vertical abdominal incision scar, which may represent a postoperative seroma. Vasculature: The abdominal aorta is normal in caliber and patent. The iliac arteries, common femoral arteries, renal arteries, celiac artery, superior mesenteric artery, and inferior mesenteric artery are patent. Lymph nodes: Normal. No enlarged lymph nodes. IMPRESSION: 1. Complex cystic and solid right ovarian mass that measures 16.2 cm x 13.2 cm x 15.1 cm, which has developed since the prior CT scan on 04/26/2018 and is most compatible with a right ovarian tumor. 2. Colonic diverticulosis without evidence for diverticulitis. 3. Small amount of ascites in the abdomen and pelvis. Electronically signed by: Yeyo Adler On 10/22/2018 02:53:27 AM
[2018-10-22] MEDS ORDERED: OXYCODONE/APAP 5MG/325MG(BULK FOR ED) 1 TABLET PO ONE (03:30)
[2018-10-22 03:44] VITALS: BP 113/66
--- NOTE | 2018-10-22 13:02 | ED PDOC ---
Post-Departure Follow-Up dr zaldivar and ruth burnett faxed formal report of ct abd/p and pelvic us for fu Cornelia Brooke MD Oct 22, 2018 13:02
--- NOTE | 2018-10-23 07:39 | ECGEPIP ---
[facility] - ED Test Date: 2018-10-21 Pat Name: ANTONIO NAIK Department: Room: - Gender: Female Senior Sql Database Developer: charlene : 1965 Requested By: OH Hickman Order Number: [id number] Reading MD: Jessi Varela Measurements Intervals [place]ternut Rate: 54 P: 64 AR: 155 QRS: 33 QRSD: 93 T: 65 QT: 450 QTc: 428 Interpretive Statements SINUS BRADYCARDIA WITH SINUS ARRHYTHMIA NONSPECIFIC T-WAVE ABNORMALITY DECREASED RATE 06/28/17 Electronically Signed on 10-23-2018 7:39:07 EDT by Jessi Varela
[2018-10-23] MEDS ORDERED: OXYC1TAB23 PO (12:07)
[2018-11-05] MEDS ORDERED: OXYC1TAB23 PO (11:42)
== END 2018-10-22 03:46 | disposition home or self-care (01) ==
LOC: M ED 22:41
DX: N83.9 Noninflammatory disorder of ovary, fallopian tube and broad ligament, unspecified (principal); R00.1 Bradycardia, unspecified; Z85.038 Personal history of other malignant neoplasm of large intestine; K57.30 Diverticulosis of large intestine without perforation or abscess without bleeding; R18.8 Other ascites; Z97.5 Presence of (intrauterine) contraceptive device; Z79.899 Other long term (current) drug therapy
CPT/HCPCS: 36415; 74177; 76830; 76856; 80047; 80076; 83605; 83690; 85025; 93005; 93041; 93976; 96361; 96374; 96375; 99284; J2270; J2405; Q9967

== ENCOUNTER 2018-10-23 05:59 | Day surgery (SDC) | payer OTHER ==
[~2018-10-23] VITALS: Ht 152.4 cm; Wt 77.1 kg
[2018-10-23] MEDS ORDERED: LR 1,000 ML IV SCH ×3 (06:30→11:00)
[2018-10-23 06:41] LABS: HEMATOCRIT 37.4 % (36.0-47.0); HEMOGLOBIN 12.6 g/dl (12.0-15.5); MEAN CORPUSCULAR HEMOGLOBIN 30.4 pg (27.0-33.0); MEAN CORPUSCULAR HGB CONC 33.7 g/dl (32.0-36.5); MEAN CORPUSCULAR VOLUME 90.1 fl (80.0-96.0); PLATELET COUNT, AUTOMATED 256 10^3/uL (150-450); RED BLOOD COUNT 4.15 10^6/uL (4.00-5.40); WHITE BLOOD COUNT 12.2 10^3/uL (4.0-10.0)
[2018-10-23] MEDS ORDERED: BUPIVACAINE HCL 0.25% 30 ML VIAL As Ordered ONE (07:02)
[2018-10-23 07:07] LABS: URINE PREG TEST NEGATIVE (NEGATIVE)
[2018-10-23] MEDS ORDERED: LIDOCAINE 2% INJ 100 MG/5 ML SDV (FOR ANES.) As Ordered ONE (07:18)
[2018-10-23] MEDS ORDERED: fentaNYL 250 MCG/5 ML INJECTION (J3010) As Ordered ONE (07:18)
[2018-10-23] MEDS ORDERED: ROCURONIUM BROMIDE 50 MG/5 ML VIAL As Ordered ONE (07:18)
[2018-10-23] MEDS ORDERED: dexameTHASONE 4 MG/ML 1ML VIAL (J1100) As Ordered ONE (07:18)
[2018-10-23] MEDS ORDERED: PROPOFOL 200 MG/20 ML VIAL As Ordered ONE (07:18)
[2018-10-23] MEDS ORDERED: ONDANSETRON 4MG/2ML VIAL (J2405) As Ordered ONE (07:18)
[2018-10-23] MEDS ORDERED: MIDAZOLAM INJ 2 MG/2 ML VIAL (J2250) As Ordered ONE (07:19)
[2018-10-23] MEDS ORDERED: ACETAMINOPHEN 1000MG 100ML IV BTL (OFIRMEV) (J0131 PER 10MG) As Ordered ONE (07:57)
[2018-10-23] MEDS ORDERED: HYDROmorphone HCL 2 MG/ML 1ML VIAL (J1170) As Ordered ONE (08:15)
[2018-10-23] MEDS ORDERED: NEOSTIGMINE 10 MG/10 ML VIAL (J2710) As Ordered ONE (08:25)
[2018-10-23] MEDS ORDERED: GLYCOPYRROLATE INJ 0.2 MG/ML 2 ML VIAL As Ordered ONE (08:25)
[2018-10-23] MEDS ORDERED: KETOROLAC 60 MG/2 ML VIAL (J1885) As Ordered ONE (08:28)
[2018-10-23] MEDS ORDERED: oxyCODONE 5MG TAB As Ordered ONE (10:46)
[2018-10-23] MEDS ORDERED: METOCLOPRAMIDE INJ 10MG/2ML VIAL (J2765) IV PRN (11:00)
[2018-10-23] MEDS ORDERED: oxyCODONE 5MG TAB PO PRN ×3 (11:00)
[2018-10-23] MEDS ORDERED: PROMETHAZINE INJ 25 MG/ML VIAL (J2550) IV PRN (11:00)
[2018-10-23] MEDS ORDERED: fentaNYL 100 MCG/2 ML INJECTION (J3010) IV PRN (11:00)
[2018-10-23] MEDS ORDERED: OXYC1TAB23 PO (12:07)
[2018-10-23 12:25] VITALS: BP 100/54
--- NOTE | 2018-10-23 14:27 | RO ---
DATE OF PROCEDURE: 10/23/2018 PREPROCEDURE DIAGNOSIS: Right ovarian cystic mass. 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 PROCEDURE: Laparoscopic right salpingo-oophorectomy. SURGEON: Alvaro Carrillo MD ENGRAVER OPTICAL FRAMES: Frank Gould DO ANESTHESIA: General endotracheal. ESTIMATED BLOOD LOSS: 200 mL. URINE OUTPUT: 200 mL. FINDINGS: 16 cm complex mass containing mucin encompassing the right ovary. Normal right fallopian tube. Normal left ovary and fallopian tube. Normal uterus. No evidence of disease outside the ovary. Normal upper abdomen. DESCRIPTION OF PROCEDURE: The patient was taken to the operating room where general endotracheal anesthesia was induced. She was prepped and draped in sterile fashion in the dorsal lithotomy position. A Sheikh catheter was placed. A Hulka uterine tenaculum was placed to use as a manipulator. A 4 cm vertical midline periumbilical incision was created with a scalpel and carried through to the fascia. The fascia was nicked and extended. A GelPOINT Mini was placed into this incision to gain laparoscopic access. A pneumoperitoneum was created. A 10 mm trocar was used to insert a camera to visualize the abdomen and pelvis. Approximately 500 mL of mucin were drained from the ovary. There was no spillage of material outside the ovary. The utero-ovarian ligaments, fallopian tubes and IP ligaments were coagulated and incised, freeing the ovary. The ovary specimen was placed in an Gold Endo Catch bag and brought through the GelPOINT Mini. The specimen was removed in multiple fragments. However, there was no intraperitoneal spillage of the mass. The pneumoperitoneum was released. All instruments were removed. The fascia of the midline port was closed with #0 Vicryl in a running fashion. The deep layer was irrigated and closed with #2-0 chromic. The skin was closed with #4-0 Monocryl subcuticular sutures. 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 In light of the patient's history of colon cancer, it is not clear if this is a secondary cancer with colon as primary or a primary ovarian malignancy. Further pathological evaluation will be undertaken. Sponge, instrument and needle counts were correct. Frank Gould DO, assisted with all aspects of the procedure from beginning to end. He helped to create the incisions and insert the ports. He helped to free the ovary and then remove the specimen at the end of the procedure.
== END 2018-10-23 12:55 | disposition home or self-care (01) ==
LOC: M SDC 05:59
PROVIDERS: ATTEND Specialist
DX: C79.61 Secondary malignant neoplasm of right ovary (principal); Z85.038 Personal history of other malignant neoplasm of large intestine; M51.36 Other intervertebral disc degeneration, lumbar region; Z79.899 Other long term (current) drug therapy; F17.210 Nicotine dependence, cigarettes, uncomplicated; Z92.23 Personal history of estrogen therapy; K21.9 Gastro-esophageal reflux disease without esophagitis
CPT/HCPCS: 36415; 58661; 84703; 85027; 88108; 88305; 88307; 88331; J0131; J1100; J1170; J1885; J2250; J2405; J2710; J3010

== ENCOUNTER → 2018-10-31 | Outpatient (CLI) | payer OTHER ==
[~2018-10-31] MED LIST changes: +ISOVUE-370 76% 100ML VIAL (Q9967) As Ordered ONE
--- NOTE | 2018-10-31 11:09 | REP ---
CT CHEST WITH IV CONTRAST: TECHNIQUE: Axial contrast enhanced images from the lung bases to the pubic symphysis using 100 mL Isovue 370 intravenous contrast material with multiplanar reformations. There is a 3 mm nodular opacity in the right lower lobe posteriorly, which is unchanged since prior study of 06/28/2017. No other nodular opacities are seen. Scattered fibrotic changes are seen in both lungs, particularly in the lingula. Right MediPort catheter seen with the tip in the superior vena cava. A few calcified lymph nodes are seen in the right hilum. No significant mediastinal, hilar, or chest wall lymphadenopathy is seen. The heart is normal in size. There is no pleural or pericardial effusion. In the visualized portions of the upper abdomen, nodules again seen in the left lobe of the liver and inferiorly in the right lobe, unchanged. The patient has had a prior cholecystectomy. IMPRESSION: No suspicious nodular opacity bilaterally. Stable 3 mm nodule is unchanged since 07/08/2017. No suspicious adenopathy. Electronically Signed by Lucius Damian MD 10/31/2018 04:38 P
== END ==
LOC: M RAD 09:12
PROVIDERS: ATTEND Internal Medicine Medical Oncology
DX: C78.5 Secondary malignant neoplasm of large intestine and rectum (principal)
CPT/HCPCS: 71260; Q9967

== ENCOUNTER → 2019-02-10 | Outpatient (CLI) | payer OTHER ==
[~2019-02-10] MED LIST changes: +GASTROGRAFIN SOLUTION 30ML (Q9963) As Ordered ONE; -LOPE2TAB11 PO; +LOPE2TAB12 PO; -OMEP20CA3 PO; +OMEP20CA4 PO
--- NOTE | 2019-02-11 06:20 | REP ---
Clinical: Colon cancer for restaging. Technique: Axial contrast enhanced images from the lung bases to the pubic symphysis using oral (per protocol) and 100 ml Isovue 370 intravenous contrast material with precontrast and delayed images of the abdomen as well as coronal and sagittal re-formations. Comparison: 10/22/2018. Findings: Lung bases demonstrate minimal fibroatelectatic changes predominantly involving the lingula. Stable hypervascular lesion in the lateral segment of the liver measures approximately 1.7 cm and likely represents hemangioma along with stable calcified subcapsular granuloma in the right lobe. Spleen, pancreas, bilateral adrenal glands and kidneys are normal. Evidence of prior cholecystectomy. Evaluation of the enteric system is without obstruction or acute inflammatory process evidence of prior right hemicolectomy noted. Sigmoid diverticulosis identified without acute diverticulitis. Evaluation of the pelvis demonstrates collapsed normal bladder and relatively normal appearance to the uterus. A large complex multi septated cystic mass involving the adnexa currently measures approximately 10.3 x 8.5 x 8.5 cm and is decreased in size when compared to prior examination. No pelvic fluid, ascites, or further mass lesion identified. No significant intraperitoneal or retroperitoneal adenopathy. Forming periumbilical midline ventral hernia contains unobstructed loop of small bowel. Abdominal aorta and vasculature without aneurysm or dissection. Musculoskeletal structures demonstrate age-related changes without focal abnormality. Impression: 1. Stable hemangioma and granuloma in the liver without further acute hepatic lesion identified. 2. Evidence for prior right hemicolectomy without acute enteric process. Sigmoid diverticula noted without acute diverticulitis. 3. Complex cystic mass involving the adnexa moderately decreased in size when compared to prior examination. 4. Midline ventral hernia containing unobstructed small bowel loop. 5. No ascites, adenopathy, or evidence for mass/metastatic disease. Electronically Signed by Jann Holliday MD 02/11/2019 06:12 A
== END ==
LOC: M RAD 13:09
PROVIDERS: ATTEND Internal Medicine Hematology & Oncology
DX: C18.9 Malignant neoplasm of colon, unspecified (principal)
CPT/HCPCS: 74178; Q9963; Q9967

== ENCOUNTER 2019-04-01 14:56 | Emergency (ER) | payer OTHER ==
[~2019-04-01] VITALS: Ht 152.4 cm; Wt 74.5 kg
[~2019-04-01 14:56] MED LIST changes: -GASTROGRAFIN SOLUTION 30ML (Q9963) As Ordered ONE; -ISOVUE-370 76% 100ML VIAL (Q9967) As Ordered ONE
[2019-04-01] MEDS ORDERED: MORPHINE 4 MG/ML 1ML VIAL/SYRINGE (J2270) IV ONE (16:00)
[2019-04-01] MEDS ORDERED: NS 1,000 ML IV ONE (16:00)
[2019-04-01] MEDS ORDERED: ONDANSETRON 4MG/2ML VIAL (J2405) IV ONE (16:00)
[2019-04-01] MEDS ORDERED: OXYC1TAB23 PO (16:17)
[2019-04-01 16:23] LABS: BASO # 0.1 10^3/uL (0.0-0.2); BASO % 0.6 % (0.0-1.0); EOS # 0.1 10^3/uL (0.0-0.5); EOS % 0.7 % (0.0-3.0); HEMATOCRIT 43.2 % (36.0-47.0); HEMOGLOBIN 14.2 g/dl (12.0-15.5); LYMPH # 1.1 10^3/uL (1.5-5.0); MEAN CORPUSCULAR HGB CONC 32.9 g/dl (32.0-36.5); MEAN CORPUSCULAR VOLUME 88.3 fl (80.0-96.0); MONO # 0.5 10^3/uL (0.0-0.8); MONO % 4.6 % (0.0-5.0); NEUTROPHILS # 9.1 10^3/uL (1.5-8.5); NEUTROPHILS % 83.1 % (36.0-66.0); PLATELET COUNT, AUTOMATED 254 10^3/uL (150-450); RED BLOOD COUNT 4.89 10^6/uL (4.00-5.40); WHITE BLOOD COUNT 10.9 10^3/uL (4.0-10.0)
[2019-04-01 16:51] LABS: ALBUMIN 3.4 GM/DL (3.2-5.2); ALT/SGPT 17 U/L (12-78); BILIRUBIN,TOTAL 0.7 MG/DL (0.2-1.0); BLOOD UREA NITROGEN 8 MG/DL (7-18); CARBON DIOXIDE LEVEL 25 MEQ/L (21-32); CHLORIDE LEVEL 106 MEQ/L (98-107); CREATININE FOR GFR 0.82 MG/DL (0.55-1.30); GLOMERULAR FILTRATION RATE > 60.0 (>51); GLUCOSE, FASTING 84 MG/DL (70-100); LIPASE 86 U/L (73-393); POTASSIUM SERUM 3.7 MEQ/L (3.5-5.1); SODIUM LEVEL 138 MEQ/L (136-145); TOTAL PROTEIN 7.2 GM/DL (6.4-8.2)
[2019-04-01] MEDS ORDERED: NORC1TAB7 PO (17:07)
[2019-04-01 17:56] VITALS: BP 116/56
== END 2019-04-01 17:58 | disposition home or self-care (01) ==
LOC: M ED 14:56
DX: R10.84 Generalized abdominal pain (principal); Z85.038 Personal history of other malignant neoplasm of large intestine; Z85.43 Personal history of malignant neoplasm of ovary; N85.00 Endometrial hyperplasia, unspecified; F17.200 Nicotine dependence, unspecified, uncomplicated; Z90.49 Acquired absence of other specified parts of digestive tract; Z40.02 Encounter for prophylactic removal of ovary(s); Z95.9 Presence of cardiac and vascular implant and graft, unspecified; R51 Headache; I51.9 Heart disease, unspecified; Z79.891 Long term (current) use of opiate analgesic; Z79.899 Other long term (current) drug therapy
CPT/HCPCS: 36415; 80053; 81001; 83690; 85025; 96361; 96374; 96375; 99284; J2270; J2405

== ENCOUNTER → 2019-04-28 | Outpatient (CLI) | payer OTHER ==
[~2019-04-28] MED LIST changes: +NORC1TAB7 PO; +OMEP-172 PO; -OMEP20CA4 PO
[2019-04-28 11:39] LABS: BASO # 0.1 10^3/uL (0.0-0.2); BASO % 1.5 % (0.0-1.0); EOS # 0.2 10^3/uL (0.0-0.5); EOS % 3.6 % (0.0-3.0); HEMATOCRIT 43.2 % (36.0-47.0); HEMOGLOBIN 14.1 g/dl (12.0-15.5); LYMPH # 1.6 10^3/uL (1.5-5.0); LYMPH % 29.5 % (24.0-44.0); MEAN CORPUSCULAR HEMOGLOBIN 28.8 pg (27.0-33.0); MEAN CORPUSCULAR HGB CONC 32.6 g/dl (32.0-36.5); MEAN CORPUSCULAR VOLUME 88.2 fl (80.0-96.0); MONO # 0.4 10^3/uL (0.0-0.8); MONO % 8.1 % (0.0-5.0); NEUTROPHILS % 57.1 % (36.0-66.0); PLATELET COUNT, AUTOMATED 332 10^3/uL (150-450); WHITE BLOOD COUNT 5.3 10^3/uL (4.0-10.0)
[2019-04-28 11:48] LABS: INR 0.98; PROTHROMBIN TIME 12.7 SECONDS (11.8-14.0)
[2019-04-28 11:49] LABS: PARTIAL THROMBOPLASTIN TIME 27.1 SECONDS (25.0-38.4)
[2019-04-28 12:11] LABS: ALBUMIN 3.6 GM/DL (3.2-5.2); ALT/SGPT 25 U/L (12-78); BILIRUBIN,TOTAL 0.5 MG/DL (0.2-1.0); BLOOD UREA NITROGEN 9 MG/DL (7-18); CALCIUM LEVEL 8.5 MG/DL (8.5-10.1); CARBON DIOXIDE LEVEL 27 MEQ/L (21-32); CHLORIDE LEVEL 107 MEQ/L (98-107); CREATININE FOR GFR 0.75 MG/DL (0.55-1.30); GLOMERULAR FILTRATION RATE > 60.0 (>51); GLUCOSE, FASTING 80 MG/DL (70-100); POTASSIUM SERUM 4.4 MEQ/L (3.5-5.1); SODIUM LEVEL 139 MEQ/L (136-145); TOTAL PROTEIN 7.5 GM/DL (6.4-8.2)
--- NOTE | 2019-04-28 13:01 | REP ---
Two-view chest: 04/28/2019. Indication: Dyspnea. Comparison: 08/21/2017. Findings: Right-sided Port-A-Cath is present with the distal tip in the SVC. There is no focal airspace consolidation. There is no pleural effusion or pneumothorax. The cardiomediastinal silhouette is unremarkable. Impression: No acute cardiopulmonary process. Electronically Signed by Drew Gudino DO 04/28/2019 12:52 P
[2019-04-29 10:13] LABS: CA 125 37.9 U/ML (<30.2)
[2019-05-01 00:06] LABS: HE4 84.2 pmol/L (0.0-105.2)
== END ==
LOC: M LAB 10:40
PROVIDERS: ATTEND Obstetrics & Gynecology Gynecologic Oncology
DX: R19.00 Intra-abdominal and pelvic swelling, mass and lump, unspecified site (principal)

== ENCOUNTER → 2019-05-13 | Outpatient (REF) | payer OTHER | LOC: M SFHCCAPE 12:00 | PROVIDERS: ATTEND Physician Assistant | DX: K21.9 Gastro-esophageal reflux disease without esophagitis (principal) ==

== ENCOUNTER → 2019-06-11 | Outpatient (CLI) | payer OTHER ==
[~2019-06-11] MED LIST changes: +ACET1TAB16 PO; +AMOX500C PO; +CLAR500T PO; +DILA2TAB6 PO; +DURA25DI3 TOP; +MIRA3350 PO; -OMEP-172 PO; +OMEP-218 PO; +OMEP1CAP73 PO
--- NOTE | 2019-06-11 20:01 | REP ---
Whole body PET CT scan for restaging of colon carcinoma: The there are no comparison PET scans. Comparison study is an abdomen/pelvis CT dated 02/10/2019. The the the patient has a known right hemicolectomy. Additionally, the patient has a cholecystectomy. I note that on the comparison CT. The the patient had a large adnexal mass extending into both right and left adnexa measuring 10.3 x 8.5 cm. This large adnexal mass is no longer present on the study today. PET scanning is performed from skull base to the upper thighs. Neck and supraclavicular areas:: There is a hypermetabolic focus at the thoracic inlet on the left measuring 2.3 cm in diameter with a maximal standard uptake value of 8.96. This may represent confluent lymph nodes. There is a hypermetabolic focus in the larynx posterior to the vocal cords in the midline measuring 1.1 cm in diameter with a maximal standard uptake value of 7.11. The No other hypermetabolic foci are identified in the neck. Chest: There are no hypermetabolic foci. Abdomen, pelvis and upper thighs: There is a hypermetabolic focus in the anterior abdominal wall in the midline at the base of the midline surgical scar measuring 2.2 cm with a maximal standard uptake value of 4.0. There are three other small foci just above this in the midline of the anterior abdominal wall at the base of the surgical scar with a maximal standard uptake value of 3.5. There are confluent enlarged nodes interposed between the duodenal loop and pancreas measuring up to 4 cm with a maximal standard uptake value of 9.7. The there are multiple enlarged periaortic and para iliac nodes with a maximal standard uptake value of 13.0. There are no foci in the adnexa. Impression: There are multiple hypermetabolic foci in the neck and in the abdomen/pelvis as described. No foci are identified in the chest. The study is performed with 8.5 mCi of F 18 FDG. Electronically Signed by Lucius Desouza MD 06/11/2019 07:52 P
== END ==
LOC: M PLARAD 15:32
PROVIDERS: ATTEND Internal Medicine Hematology
DX: C18.2 Malignant neoplasm of ascending colon (principal); R59.0 Localized enlarged lymph nodes
CPT/HCPCS: 78815; A9552

== ENCOUNTER → 2019-07-10 | Outpatient (REF) | payer OTHER ==
[~2019-07-10] MED LIST changes: -CLAR500T PO; +CLAR500T97 PO; +HYDR-4514 PO; +OLAN10TA2 PO; +ONDA4TAB6 PO; +PROC10TA4 PO
== END ==
LOC: M SFHCCAPE 13:03
PROVIDERS: ATTEND Physician Assistant
DX: A04.8 Other specified bacterial intestinal infections (principal)

== ENCOUNTER → 2019-10-15 | Outpatient (CLI) | payer OTHER ==
[~2019-10-15] MED LIST changes: +CYCL-707 PO; -CYCL10TA PO
--- NOTE | 2019-10-16 04:11 | REP ---
Clinical: Epigastric pain. Technique: Real time nath scale and color evaluation using curved array transducer. Findings: The liver demonstrates a 2.0 x 1.5 x 2.4 cm hypoechoic mass in the left lobe with surrounding vascularity suggesting mass. This lesion appears to correspond to hemangioma identified on multiple prior CT examinations dating through 06/28/2017. Pancreas is normal in echogenicity, size and appearance. The patient is known to be status post cholecystectomy. No biliary ductal dilatation is appreciated and the common bile duct measures 6.7 mm diameter. The right kidney is normal and measures 10.6 x 4.9 x 4.0 cm. The abdominal aorta measures 2.5 cm maximal diameter. No ascites in the visualized right upper quadrant. Impression: 1. 2.4 cm hypoechoic mass in the left lobe of the liver cannot be further evaluated by ultrasound, but likely corresponds to the hemangioma which remains stable on multiple prior CT examinations dating through 06/28/2017. 2. Prior cholecystectomy.
== END ==
LOC: M PLAIMG 08:35
PROVIDERS: ATTEND Internal Medicine Gastroenterology
DX: R10.13 Epigastric pain (principal); K76.89 Other specified diseases of liver; Z90.49 Acquired absence of other specified parts of digestive tract

== ENCOUNTER → 2019-11-07 | Outpatient (CLI) | payer OTHER | LOC: M LABSMTC 11:48 | PROVIDERS: ATTEND Anesthesiology | DX: Z03.818 Encounter for observation for suspected exposure to other biological agents ruled out (principal); Z11.59 Encounter for screening for other viral diseases | CPT/HCPCS: C9803; U0003 ==

== ENCOUNTER 2019-11-10 09:24 | Day surgery (SDC) | payer OTHER ==
[~2019-11-10] VITALS: Ht 152.4 cm; Wt 78.4 kg
[~2019-11-10 09:24] MED LIST changes: +NS 1,000 ML IV ONE
[2019-11-10] MEDS ORDERED: LIDOCAINE 2% 100MG/5ML SDV (FOR ANES.) As Ordered ONE (10:31)
[2019-11-10] MEDS ORDERED: propofoL 200 MG/20 ML VIAL As Ordered ONE (10:31)
--- NOTE | 2019-11-10 11:01 | ROOR ---
Patient Name: Cheryl Rivera Procedure Date: 11/10/2019 10:16 AM Date of : 1965 Age: 54 Room: [facility] Gender: Female Note Status: Finalized Procedure: Upper GI endoscopy Indications: Epigastric abdominal pain, Heartburn Providers: Jose Miguel Camarillo MD Referring MD: EARL Quintero [id number] Requesting Provider: Medicines: Monitored Anesthesia Care Complications: No immediate complications. Procedure: Pre-Anesthesia Assessment: - Prior to the procedure, a History and Physical was performed, and patient medications and allergies were reviewed. The patient is competent. The risks and benefits of the procedure and the sedation options and risks were discussed with the patient. All questions were answered and informed consent was obtained. Patient identification and proposed procedure were verified by the physician, the nurse and the anesthesiologist in the procedure room. Mental Status Examination: alert and oriented. Airway Examination: normal oropharyngeal airway and neck mobility. Respiratory Examination: clear to auscultation. CV Examination: normal. Prophylactic Antibiotics: The patient does not require prophylactic antibiotics. Prior Anticoagulants: The patient has taken no previous anticoagulant or antiplatelet agents. ASA Grade Assessment: II - A patient with mild systemic disease. After reviewing the risks and benefits, the patient was deemed in satisfactory condition to undergo the procedure. The anesthesia plan was to use monitored anesthesia care (MAC). Immediately prior to administration of medications, the patient was re-assessed for adequacy to receive sedatives. The heart rate, respiratory rate, oxygen saturations, blood pressure, adequacy of pulmonary ventilation, and response to care were monitored throughout the procedure. The physical status of the patient was re-assessed after the procedure. The Endoscope was introduced through the mouth, and advanced to the second part of duodenum. The upper GI endoscopy was accomplished without difficulty. The patient tolerated the procedure well. Findings: The Z-line was regular and was found 35 cm from the incisors. Scattered mild inflammation characterized by erythema and granularity was found in the gastric antrum. Biopsies were taken with a cold forceps for Helicobacter pylori testing. Verification of patient identification for the specimen was done by the physician and nurse using the patient's name, date and medical record number. Estimated blood loss was minimal. The duodenal bulb and second portion of the duodenum were normal. Biopsies for histology were taken with a cold forceps for evaluation of celiac disease. Impression: - Z-line regular, 35 cm from the incisors. - Gastritis. Biopsied. - Normal duodenal bulb and second portion of the duodenum. Biopsied. Recommendation: - Patient has a contact number available for emergencies. The signs and symptoms of potential delayed complications were discussed with the patient. Return to normal activities tomorrow. Written discharge instructions were provided to the patient. - High fiber diet. - Continue present medications. - Await pathology results. - Telephone GI clinic for pathology results in 2 weeks. - Return to primary care physician. Jose Miguel Camarillo MD Jose Miguel Camarillo MD 11/10/2019 11:01:29 AM Electronically signed by Jose Miguel Camarillo MD Number of Addenda: 0 Note Initiated On: 11/10/2019 10:16 AM Estimated Blood Loss: Estimated blood loss was minimal.
[2019-11-10 11:09] VITALS: BP 132/63
== END 2019-11-10 11:10 | disposition home or self-care (01) ==
LOC: M OPP 09:24
PROVIDERS: ATTEND Internal Medicine Gastroenterology
DX: K29.70 Gastritis, unspecified, without bleeding (principal); F17.210 Nicotine dependence, cigarettes, uncomplicated; Z85.038 Personal history of other malignant neoplasm of large intestine; Z85.79 Personal history of other malignant neoplasms of lymphoid, hematopoietic and related tissues; Z92.21 Personal history of antineoplastic chemotherapy

== ENCOUNTER → 2019-12-10 | Outpatient (CLI) | payer OTHER ==
[~2019-12-10] MED LIST changes: -NS 1,000 ML IV ONE; +PYRI25TA2 PO; +XELO150T PO; +XELO1TAB PO
[2019-12-10 14:52] LABS: ALBUMIN 3.8 GM/DL (3.2-5.2); ALT/SGPT 51 U/L (12-78); BILIRUBIN,DIRECT < 0.1 MG/DL (0.0-0.2); BILIRUBIN,TOTAL 0.3 MG/DL (0.2-1.0); TOTAL PROTEIN 7.5 GM/DL (6.4-8.2)
[2019-12-10 15:06] LABS: HEPATITIS B SURFACE ANTIGEN NEGATIVE (NEGATIVE)
[2020-02-04 13:39] LABS: ANTI-MITOCHONDRIAL ANTIBODY SEE SEPARATE REPORT; ANTI-SMOOTH MUSCLE ANTIBODY S; ANTINUCLEAR ANTIBODIES DIRECT See Separate Report; HEPATITIS A IgG TOTAL SEE SEPARATE REPORT; IGASUB2 See Separate Report; IGASUB3 See Separate Report; IgA SERUM (part of Subclasses) See Separate Report; LIVER-KIDNEY MICROSOMAL ABY SEE SEPARATE REPORT; TISSUE TRANSGLUTAMINASE IgA SEE SEPARATE REPORT UNITS; UNITSIGA FOR GLIADIN IGA SEE SEPARATE REPORT UNITS; UNITSIGG FOR GLIADIN IGG SEE SEPARATE REPORT UNITS
== END ==
LOC: M LAB 13:34
PROVIDERS: ATTEND Internal Medicine Gastroenterology
DX: R10.13 Epigastric pain (principal); R94.5 Abnormal results of liver function studies

== ENCOUNTER → 2020-01-07 | Outpatient (CLI) | payer OTHER ==
[~2020-01-07] MED LIST changes: +GASTROGRAFIN SOLUTION 30ML (Q9963) As Ordered ONE; +ISOVUE-370 76% 100ML VIAL As Ordered ONE
--- NOTE | 2020-02-12 09:07 | REP ---
CT CHEST WITH IV CONTRAST Delay in reporting results from hospital computer malfunction from malware/ ransomware. The study is performed for colon carcinoma. COMPARISON: 10/31/2018. FINDINGS: There is a stable 3-mm lung nodule in the posterior basilar segment of the right lower lobe on Image 55, unchanged from the prior study and unchanged from an abdomen/pelvis CT dated 06/28/2017. There is curvilinear scarring inferiorly in the lingula and inferomedially in the right upper lobe, unchanged from 10/31/2018. There are no other lung nodules or masses. There are no acute infiltrates or pleural effusions. There is no mediastinal or hilar lymph node enlargement. This is unchanged. There is no axillary lymph node enlargement. This is unchanged. There is a right IJ Infusaport catheter with the tip in the superior vena cava. On the study today, the contrast in the superior vena cava is seen surrounding a filling defect at the tip of the Infusaport catheter and also along the margins of the distal portion of the catheter, not present previously, likely representing clot formation. There is no complete occlusion of the superior vena cava. Occlusion of the catheter will require clinical correlation. The IV contrast for the CT is infused via the left upper extremity. The thoracic aorta is unremarkable. Cardiac size is normal. There is no pericardial effusion. IMPRESSION: Single stable 3-mm nodule in the right lower lobe as described, compatible with granuloma. No other lung nodules or masses. No infiltrates or effusions. No adenopathy. There is evidence for clot formation at the tip of the central venous catheter and within the ncatheter lumen as described. There is no evidence of complete vena cava occlusion. Catheter occlusion requires clinical correlation. The IV contrast for the CT is infused via the left upper extremity. [facility]
--- NOTE | 2020-02-12 09:10 | REP ---
CT ABDOMEN AND PELVIS WITH IV AND BOWEL CONTRAST Delay in reporting results from hospital computer system malfunction from malware/ ransomware. This study is performed for colon carcinoma surveillance. COMPARISON: Abdomen and pelvis CT of 02/10/2019. FINDINGS: There is an enhancing 1.7 cm lesion in the lateral segment of the hepatic left lobe, unchanged and also unchanged from a prior study dated 06/28/2017, likely an hemangioma. There is a calcified subcapsular granuloma inferiorly on the right lobe of the liver, also unchanged. There are no other focal hepatic nodules or masses. There is no biliary duct dilatation. There are surgical clips in the gallbladder fossa suggesting cholecystectomy. The pancreas and spleen are normal size and unremarkable. The adrenals are unremarkable. The kidneys are unremarkable. The abdominal aorta is unremarkable. There is no periaortic adenopathy or mass. There is a right hemicolectomy with a circumferential surgical anastomotic suture ring in the hepatic flexure of the colon compatible with ileocolic anastomosis. This is unchanged. There is no mesenteric adenopathy or ascites. There are occasional diverticula in the descending colon without CT evidence of diverticulitis. This is unchanged. PELVIS: There has been an interim hysterectomy and bilateral oophorectomy. The previous large pelvic cyst is no longer present. There is no pelvic adenopathy or ascites. There are no lytic, blastic, or destructive skeletal changes. IMPRESSION: There has been an interim hysterectomy. The previously large pelvic cyst is no longer identified. On the comparison study, there was a midline ventral hernia anteriorly in the pelvis. This has been repaired and is no longer present. The hepatic flexure ileocolic anastomosis is unchanged. The enhancing hepatic left lobe nodule is unchanged, likely an hemangioma. The hepatic granuloma is unchanged. There is no adenopathy, mass, or ascites. There is descending colon diverticulosis without diverticulitis, unchanged. MTDD
== END ==
LOC: M RAD 13:57
PROVIDERS: ATTEND Internal Medicine Hematology & Oncology
DX: C18.9 Malignant neoplasm of colon, unspecified (principal); K76.89 Other specified diseases of liver; K63.89 Other specified diseases of intestine
CPT/HCPCS: 71260; 74177; Q9963; Q9967

== ENCOUNTER → 2020-03-15 | Outpatient (CLI) | payer OTHER ==
[~2020-03-15] MED LIST changes: -GASTROGRAFIN SOLUTION 30ML (Q9963) As Ordered ONE; -ISOVUE-370 76% 100ML VIAL As Ordered ONE
--- NOTE | 2020-03-15 11:05 | REP ---
INDICATION: M79.672,M79.671, BILATERAL FOOT PAIN. Progressive bilateral foot pain x2 weeks. COMPARISON: None. TECHNIQUE: Four views of each foot are presented. Total of 8 views. FINDINGS: Four views of the right foot demonstrate moderate hallux valgus and some osteoarthritic spurring at the 1st MTP joint. There is a large plantar calcaneal spur. No erosive change or bony destructive lesion is seen.. Four views of the left foot demonstrate moderate hallux valgus. There is 1st MTP joint osteoarthritis. There are bilateral small os naviculare. On the left, osteoarthritic spurring is seen at the 1st MTP joint as well as the 1st MTP joint. There is plantar calcaneal spurring on the left similar to that seen on the right. 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 Osteoarthritic spurring is seen at the left 1st MT T articulation. Bilateral plantar heel spurs. Normal overall mineralization.. <Electronically signed by Checo Coburn > 03/15/20 [id number]
== END ==
LOC: M CLY 10:12
PROVIDERS: ATTEND Nurse Practitioner Family
DX: M19.071 Primary osteoarthritis, right ankle and foot (principal); M19.072 Primary osteoarthritis, left ankle and foot

== ENCOUNTER → 2020-05-04 | Outpatient (CLI) | payer OTHER ==
[~2020-05-04] MED LIST changes: +GASTROGRAFIN SOLUTION 30ML (Q9963) As Ordered ONE; +ISOVUE-370 76% 100ML VIAL As Ordered ONE
--- NOTE | 2020-05-04 10:41 | REP ---
INDICATION: COLON CA. COMPARISON: 10/15/2019. TECHNIQUE: Real-time sonographic evaluation of right upper quadrant performed. FINDINGS: The patient has had a prior cholecystectomy.. There is no intrahepatic or extrahepatic biliary dilatation, common bile duct measures 6 mm in maximum diameter. There is again diffuse increased echotexture of the liver as seen on prior study. In the lateral segment of the left lobe in ill-defined hypoechoic area is seen likely representing spared parenchyma, with fatty infiltration of the remainder of the liver. Within this area of hypoechoic parenchyma there is a hypoechoic nodule which measures approximately 1.9 x 1.3 x 1.8 cm. This is essentially unchanged. There is a calcified granuloma peripherally in the right lobe of the liver.. Visualized pancreas is grossly unremarkable, not optimally seen due to overlying bowel gas. The right kidney demonstrates no hydronephrosis, with a normal size of 10.7 cm in length. No free fluid is seen. IMPRESSION: Fatty infiltration of the liver. Stable nodule left lobe of the liver compared to prior ultrasound. <Electronically signed by Lucius Damian > 05/04/20 1037
--- NOTE | 2020-05-04 11:40 | REP ---
INDICATION: COLON CA- US FIRST. COMPARISON: CT of the chest dated 01/07/2020, CT of the chest dated 10/31/2018 CT of the abdomen including the lower lung perdomo of 06/28/2017. TECHNIQUE: CT of the chest with IV contrast. FINDINGS: There is a stable 3 mm granuloma in the posterior basilar segment of the right lower lobe, unchanged from 06/28/2017. There is chronic parenchymal scarring inferiorly in the lingula unchanged from 06/28/2017. There is a new focal linear density in the lateral basilar segment of the left lower lobe on image 45 measuring 2.0 by 6.0 mm this could represent atelectasis or neoplasm. There are no other lung nodules or masses. The previous MediPort catheter in the superior vena cava has been removed. 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 There is no mediastinal lymph node enlargement. There are enlarged right hilar nodes measuring up to 10 mm short axis. These measured 3 mm previously and more nonenlarged. There is no left hilar lymph node enlargement. There is no axillary lymph node enlargement. The thoracic aorta is unremarkable. Cardiac size is normal. There is no pericardial effusion. There are no lytic, blastic or destructive skeletal changes. IMPRESSION: There is a new focal linear density in the lateral basilar segment of the left lower lobe. This could be atelectasis or neoplasm. There are enlarging right hilar nodes as described measuring up to 10 mm short axis. There is chronic mural thrombus along the medial and lateral silvestre of the superior vena cava without vena caval occlusion. The previous med port has been removed. There is a stable 3 mm granuloma in the right lower lobe. <Electronically signed by Lucius Desouza > 05/04/20 [id number]
--- NOTE | 2020-05-04 12:21 | REP ---
INDICATION: COLON CA- US FIRST. COMPARISON: Abdomen and pelvis CT dated 04/26/2018 and abdomen and pelvis CT dated 01/07/2020. TECHNIQUE: Abdomen and pelvis CT with IV and bowel contrast FINDINGS: The hepatic parenchyma is diffusely leads is dense than liver compatible with hepato steatosis. This is unchanged. There is no enhancing liver nodule in the left lobe, unchanged from 01/07/2020, compatible with hemangioma. No other hepatic solid or cystic masses are identified. There are surgical clips in the gallbladder fossa, unchanged. The pancreas and spleen are normal size, homogeneous and otherwise unremarkable. The adrenals are unremarkable. The kidneys are unremarkable. The abdominal aorta is unremarkable. There is no periaortic adenopathy or mass. There is a right upper quadrant ileocolonic anastomosis, unchanged. There is no evidence of tumor recurrence along the endosteum oasis. There is no mesenteric lymph node enlargement. There is no ascites. Pelvis: There is a hysterectomy. The vaginal cuff and adnexa are unremarkable the bladder is unremarkable. There are occasional descending colon and sigmoid colon diverticula without CT evidence of diverticulitis. There is no pelvic ascites or adenopathy. There are no lytic, blastic or destructive skeletal changes. IMPRESSION: There is no evidence of metastatic disease, adenopathy or ascites. There is a stable hepatic left lobe hemangioma. Hepato steatosis. Right upper quadrant ileocolic anastomosis, unchanged. Cholecystectomy, unchanged. Hysterectomy, unchanged. <Electronically signed by Lucius Desouza > 05/04/20 [id number]
== END ==
LOC: M RAD 08:10
PROVIDERS: ATTEND Internal Medicine Hematology & Oncology
DX: C18.9 Malignant neoplasm of colon, unspecified (principal); C78.7 Secondary malignant neoplasm of liver and intrahepatic bile duct; K76.0 Fatty (change of) liver, not elsewhere classified; R91.8 Other nonspecific abnormal finding of lung field
CPT/HCPCS: 71260; 74177; 76705; Q9963; Q9967

== ENCOUNTER → 2020-06-30 | Outpatient (REF) | payer OTHER ==
[~2020-06-30] MED LIST changes: +ELIQ5TAB PO; -GASTROGRAFIN SOLUTION 30ML (Q9963) As Ordered ONE; -ISOVUE-370 76% 100ML VIAL As Ordered ONE; +LORA-674 PO
== END ==
LOC: M SFHCCLAY 09:08
PROVIDERS: ATTEND Physician Assistant
DX: R30.0 Dysuria (principal)

== ENCOUNTER → 2020-07-06 | Outpatient (CLI) | payer OTHER | LOC: M LABSMTC 11:37 | PROVIDERS: ATTEND Family Medicine | DX: Z20.822 Contact with and (suspected) exposure to COVID-19 (principal) ==

== ENCOUNTER → 2020-08-03 | Outpatient (CLI) | payer OTHER ==
[~2020-08-03] MED LIST changes: +GASTROGRAFIN SOLUTION 30ML (Q9963) As Ordered ONE; +ISOVUE-370 76% 100ML VIAL As Ordered ONE
--- NOTE | 2020-08-04 07:38 | REP ---
INDICATION: COLON CA COMPARISON: 05/04/2020 TECHNIQUE: Axial contrast enhanced images from the thoracic inlet to the upper abdomen using 100 ml Isovue 370 intravenous contrast material followed by CT of the abdomen and pelvis. Coronal and sagittal reformations obtained. This CT examination was performed using the following dose reduction techniques: Automated exposure control, adjustment of mA and/or kv according to the patient's size, and use of iterative reconstruction technique. FINDINGS: The previously identified somewhat linear area of presumed fibro atelectatic change in the lateral aspect of the left lower lobe (series 204; images 42-49) is again identified and unchanged. No acute consolidation, new significant nodule or mass lesion appreciated. No pleural effusion. No pneumothorax. Tracheobronchial tree is patent. No significant/new axillary, hilar, or mediastinal adenopathy noted. The previously identified right hilar lymph nodes measuring up to approximately 9 mm short axis are essentially unchanged. Further evaluation of the mediastinum demonstrates normal stable thoracic aorta, pulmonary vasculature, and heart/pericardium. [id number]-I-[id number] identified with tip in the SVC. No evidence for mural thrombus within the superior vena cava identified on current examination. Musculoskeletal structures are intact and without acute osseous abnormality. Limited upper abdomen demonstrates normal bilateral adrenal glands. IMPRESSION: 1. Small area of somewhat linear presumed fibroatelectatic changes in the left base remains stable. Findings less likely represent active process. Given the patient's history of malignancy a 6 month follow-up examination to confirm stability may be warranted. <Electronically signed by Jann Holliday > 08/04/20 0734
--- NOTE | 2020-08-04 07:43 | REP ---
INDICATION: COLON CA. COMPARISON: 05/04/2020 TECHNIQUE: Axial contrast-enhanced images from the lung bases to the pubic symphysis using oral 100 cc Isovue 370 intravenous contrast material. Delayed of the abdomen obtained along with and sagittal reformations. This CT examination was performed using the following dose reduction techniques: Automated exposure control, adjustment of mA and/or kv according to the patient's size, and the use of iterative reconstruction technique. FINDINGS: Liver again demonstrates diffuse fatty infiltration and stable chronic granuloma in the right lobe. There is a stable 2 cm hyperenhancing lesion in the lateral segment left lobe of the liver which remains essentially unchanged as compared with 02/10/2019 and may represent hemangioma. Spleen, pancreas, bilateral adrenal glands and kidneys are normal. The enteric system including stomach, small, and large bowel appears relatively normal. Postsurgical changes suggesting prior right hemicolectomy again noted. No evidence for obstruction or acute inflammatory process. Normal terminal ileum and appendix are identified in the right lower quadrant. Few scattered sigmoid diverticula are appreciated without acute diverticulitis. Pelvis demonstrates normal bladder and prior hysterectomy. No ascites. No free air. No intraperitoneal or retroperitoneal adenopathy. Abdominal aorta and vasculature appear normal. Musculoskeletal structures are intact and without acute osseous abnormality. IMPRESSION: No acute abdominopelvic pathology appreciated. No evidence for recurrence or metastatic disease. Chronic nonacute findings as noted above. <Electronically signed by Jann Holliday > 08/04/20 0719
== END ==
LOC: M RAD 15:33
PROVIDERS: ATTEND Internal Medicine Hematology & Oncology
DX: C18.9 Malignant neoplasm of colon, unspecified (principal)
CPT/HCPCS: 71260; 74177; Q9963; Q9967

== ENCOUNTER 2020-10-28 09:11 | Emergency (ER) | payer OTHER ==
[~2020-10-28] VITALS: Ht 152.4 cm; Wt 75.0 kg
[~2020-10-28 09:11] MED LIST changes: -GASTROGRAFIN SOLUTION 30ML (Q9963) As Ordered ONE; -ISOVUE-370 76% 100ML VIAL As Ordered ONE
[2020-10-28] MEDS ORDERED: NS 1,000 ML IV SCH (09:40)
[2020-10-28] MEDS ORDERED: ISOVUE-370 76% 100ML VIAL As Ordered ONE (10:29)
[2020-10-28] MEDS ORDERED: ONDANSETRON 4MG/2ML VIAL IV ONE (10:30)
[2020-10-28 10:34] LABS: BASO # 0.1 10^3/uL (0.0-0.2); BASO % 1.9 % (0.0-1.0); EOS # 0.1 10^3/uL (0.0-0.5); EOS % 1.9 % (0.0-3.0); HEMOGLOBIN 13.7 g/dl (12.0-15.5); LYMPH # 1.2 10^3/uL (1.5-5.0); LYMPH % 17.5 % (24.0-44.0); MEAN CORPUSCULAR HEMOGLOBIN 28.5 pg (27.0-33.0); MEAN CORPUSCULAR HGB CONC 34.3 g/dl (32.0-36.5); MEAN CORPUSCULAR VOLUME 83.2 fl (80.0-96.0); MONO # 0.5 10^3/uL (0.0-0.8); MONO % 7.7 % (2.0-8.0); NEUTROPHILS # 4.8 10^3/uL (1.5-8.5); NEUTROPHILS % 70.7 % (36.0-66.0); PLATELET COUNT, AUTOMATED 315 10^3/uL (150-450); RED BLOOD COUNT 4.81 10^6/uL (4.00-5.40); WHITE BLOOD COUNT 6.7 10^3/uL (4.0-10.0)
[2020-10-28] MEDS: MORPHINE 4 MG/ML 1ML VIAL/SYRINGE (J2270) IV PRN ×2 (10:42→16:23)
[2020-10-28 10:56] LABS: INR 1.08; PROTHROMBIN TIME 14.2 SECONDS (12.5-14.3)
[2020-10-28 11:14] LABS: ALBUMIN 2.7 GM/DL (3.2-5.2); BILIRUBIN,DIRECT 13.5 MG/DL (0.0-0.2); BILIRUBIN,TOTAL 16.1 MG/DL (0.2-1.0); TOTAL PROTEIN 7.1 GM/DL (6.4-8.2)
--- NOTE | 2020-10-28 11:16 | REP ---
INDICATION: jaundice/abd pain/colon ca. COMPARISON: 08/03/2020 TECHNIQUE: Axial contrast-enhanced images from the lung bases to the pubic symphysis using 100 cc Isovue 370 intravenous contrast material. Coronal and sagittal reformations obtained along with delayed images of the abdomen. This CT examination was performed using the following dose reduction techniques: Automated exposure control, adjustment of mA and/or kv according to the patient's size, and the use of iterative reconstruction technique. FINDINGS: Severe extensive intrahepatic and extrahepatic biliary ductal dilatation is appreciated along with pancreatic ductal dilatation. The area of the distal common bile duct in relation to the duodenum and head/uncinate process of the pancreas appears enlarged as compared with prior examination but difficult to distinguish between possible mass lesion arising from either the duodenum or pancreas. Few adjacent lymph nodes are now identified measuring up to roughly 11 mm short axis diameter which have visibly increased from prior examination when appearing essentially nonspecific in size and appearance. No obvious focal liver lesion is identified. Spleen, bilateral adrenal glands and kidneys are normal. The enteric system is without obvious obstruction or acute inflammatory process. Scattered sigmoid diverticula noted without acute diverticulitis. Evidence for prior partial colonic resection noted. Pelvis demonstrates normal bladder and evidence for prior hysterectomy. No ascites. Few retroperitoneal lymph nodes measuring up to approximately 11 mm are nonspecific. Abdominal aorta and vasculature appears normal. IMPRESSION: 1. New significant intrahepatic/extrahepatic biliary ductal dilatation and dilatation to the pancreatic duct. Point of obstruction in the region of the head/uncinate process of the pancreas and adjacent duodenum cannot be distinguished, but new obstructing lesion is suspected. Few mildly prominent adjacent lymph nodes previously appeared normal in size. <Electronically signed by Jann Holliday > 10/28/20 [id number]
[2020-10-28 13:34] LABS: RSV AMPLIFICATION NEGATIVE (NEGATIVE)
[2020-10-28 16:22] VITALS: BP 136/74
--- NOTE | 2020-10-29 03:14 | ECGEPIP ---
[facility] - ED Test Date: 2020-10-28 Pat Name: ANTONIO NAIK Department: Room: - Gender: Female [employer] Publicist: SOCORRO : 1965 Requested By: Jessi Varela Order Number: [id number] Reading MD: Percy Cruz Measurements Intervals [place] Rate: 79 P: 61 HI: 132 QRS: -12 QRSD: 80 T: 69 QT: 400 QTc: 458 Interpretive Statements Normal sinus rhythm POOR R WAVE PROGRESSION NONSPECIFIC T WAVE ABNORMALITY(S) SIMILAR TO 10/21/18 Electronically Signed on 10-29-2020 3:14:26 EDT by Percy Cruz
== END 2020-10-28 16:30 | disposition short-term general hospital (02) ==
LOC: M ED 09:11
DX: K83.1 Obstruction of bile duct (principal); R73.03 Prediabetes; E78.5 Hyperlipidemia, unspecified; K21.9 Gastro-esophageal reflux disease without esophagitis; Z85.038 Personal history of other malignant neoplasm of large intestine; Z90.49 Acquired absence of other specified parts of digestive tract; F17.200 Nicotine dependence, unspecified, uncomplicated; Z79.01 Long term (current) use of anticoagulants; Z79.899 Other long term (current) drug therapy
CPT/HCPCS: 36415; 74177; 80047; 80076; 83605; 83690; 85025; 85610; 85730; 87631; 93005; 96361; 96374; 96376; 99285; J2270; J2405; Q9967

== ENCOUNTER 2020-11-06 18:02 | Emergency (ER) | payer OTHER ==
[~2020-11-06] VITALS: Ht 152.4 cm; Wt 73.8 kg
[2020-11-06] MEDS ORDERED: NS 1,000 ML IV ONE (19:50)
[2020-11-06] MEDS ORDERED: MORPHINE 4 MG/ML 1ML VIAL/SYRINGE (J2270) IV ONE (19:50)
[2020-11-06 19:54] LABS: BASO # 0.1 10^3/uL (0.0-0.2); BASO % 0.8 % (0.0-1.0); EOS # 0.2 10^3/uL (0.0-0.5); EOS % 2.5 % (0.0-3.0); HEMATOCRIT 39.7 % (36.0-47.0); LYMPH % 27.6 % (24.0-44.0); MEAN CORPUSCULAR HEMOGLOBIN 28.1 pg (27.0-33.0); MEAN CORPUSCULAR HGB CONC 32.7 g/dl (32.0-36.5); MEAN CORPUSCULAR VOLUME 85.7 fl (80.0-96.0); MONO # 0.6 10^3/uL (0.0-0.8); MONO % 8.2 % (2.0-8.0); NEUTROPHILS # 4.3 10^3/uL (1.5-8.5); NEUTROPHILS % 60.6 % (36.0-66.0); PLATELET COUNT, AUTOMATED 297 10^3/uL (150-450); RED BLOOD COUNT 4.63 10^6/uL (4.00-5.40); WHITE BLOOD COUNT 7.1 10^3/uL (4.0-10.0)
[2020-11-06] MEDS: GASTROGRAFIN SOLUTION 30ML PO SCH ×2 (20:16→20:36)
[2020-11-06] MEDS ORDERED: sertraline (20:25)
[2020-11-06] MEDS ORDERED: FAMO1TAB11 PO (20:25)
[2020-11-06] MEDS ORDERED: OMEP-218 PO (20:26)
[2020-11-06 20:33] LABS: ALBUMIN 2.5 GM/DL (3.2-5.2); ALT/SGPT 195 U/L (12-78); BILIRUBIN,DIRECT 4.5 MG/DL (0.0-0.2); BILIRUBIN,TOTAL 5.7 MG/DL (0.2-1.0); BLOOD UREA NITROGEN 4 MG/DL (7-18); CALCIUM LEVEL 8.7 MG/DL (8.5-10.1); CARBON DIOXIDE LEVEL 26 MEQ/L (21-32); CHLORIDE LEVEL 104 MEQ/L (98-107); CREATININE FOR GFR 0.55 MG/DL (0.55-1.30); GLOMERULAR FILTRATION RATE > 60.0 (>51); GLUCOSE, FASTING 110 MG/DL (70-100); LIPASE 5389 U/L (73-393); POTASSIUM SERUM 4.5 MEQ/L (3.5-5.1); SODIUM LEVEL 138 MEQ/L (136-145); TOTAL PROTEIN 7.4 GM/DL (6.4-8.2)
[2020-11-06 20:37] LABS: APPEARANCE, URINE CLEAR (CLEAR); BACTERIA, URINE AUTO NEGATIVE (NEGATIVE); BILIRUBIN, URINE AUTO NEGATIVE (NEGATIVE); BLOOD, URINE BLOOD NEGATIVE (NEGATIVE); COLOR, URINE YELLOW (YELLOW); GLUCOSE, URINE (UA) AUTO NEGATIVE (NEGATIVE); KETONE, URINE AUTO NEGATIVE (NEGATIVE); LEUKOCYTE ESTERASE, URINE AUTO NEGATIVE (NEGATIVE); NITRITE, URINE AUTO NEGATIVE (NEGATIVE); PROTEIN, URINE AUTO NEGATIVE (NEGATIVE); RBC, URINE AUTO 0 /HPF (0-3); SPECIFIC GRAVITY URINE AUTO 1.001 (1.002-1.035); SQUAMOUS EPITHELIAL CELL UR AU 0 /HPF (0-6); UROBILINOGEN, URINE AUTO 0.2 mg/dL (0.0-2.0); WBC, URINE AUTO 0 /HPF (0-3)
[2020-11-06] MEDS ORDERED: ISOVUE-370 76% 100ML VIAL As Ordered ONE (21:41)
[2020-11-06 22:00] VITALS: BP 151/68
--- NOTE | 2020-11-06 22:00 | REPVR ---
PROCEDURE INFORMATION: Exam: US Abdomen, Limited; Right Upper Quadrant Exam date and time: 11/06/2020 8:39 PM Age: 55 years old Clinical indication: Abdominal pain; Epigastric; Prior surgery; Surgery date: 3-7 days post-operative; Surgery type: Patient states she had a stent placed somewhere in liver area, states she had a mass between her pancreas and liver ? cbd stent; Patient HX: Patient had colon cancer that spread to ovary and lymph nodes; Additional info: Ruq sono /biliary path/ pancreas TECHNIQUE: Imaging protocol: US abdomen. Real time ultrasound with image documentation. Limited exam focused on the right upper quadrant. COMPARISON: ABDOMEN LIMITED US 10/15/2019 8:44 AM FINDINGS: Liver: Echogenic regions in the liver, likely representing pneumobilia. Gallbladder: A status post cholecystectomy. Common bile duct: Possible stent in the common bile duct. Pancreas: Limited view of the pancreas due to overlying bowel gas. Right kidney: Right kidney measures 9.2 x 4.0 x 4.1 cm. Intraperitoneal space: No free fluid in the abdomen. IMPRESSION: Echogenic regions in the liver, likely pneumobilia. Possible stent in the common bile duct. Limited view of the pancreas due to overlying bowel gas. Electronically signed by: Charan Moore On 11/06/2020 22:00:10 PM
--- NOTE | 2020-11-06 22:11 | REPVR ---
PROCEDURE INFORMATION: Exam: CT Abdomen And Pelvis With Contrast Exam date and time: 11/06/2020 9:47 PM Age: 55 years old Clinical indication: Abdominal pain; Localized; Right upper quadrant (ruq); Additional info: Ruq pain TECHNIQUE: Imaging protocol: Computed tomography of the abdomen and pelvis with contrast. Radiation optimization: All CT scans at this facility use at least one of these dose optimization techniques: automated exposure control; mA and/or kV adjustment per patient size (includes targeted exams where dose is matched to clinical indication); or iterative reconstruction. Contrast material: ISOVUE 370; Contrast volume: 100 ml; Contrast route: INTRAVENOUS (IV); COMPARISON: CT ABD/PEL W/IV CONTRAST ONLY 10/28/2020 10:57 AM FINDINGS: Liver: Normal. No mass. Gallbladder and bile ducts: A biliary stent is seen. Pneumobilia. Interval resolution of the intrahepatic biliary ductal dilatation. Pancreas: There is pancreatic ductal dilatation in the body and the tail. Ill-defined pancreatic head mass measuring 3.6 x 3.7 cm. No fat plane between the duodenum and the pancreatic mass. Spleen: Normal. No splenomegaly. Adrenal glands: Normal. No mass. Kidneys and ureters: Normal. No hydronephrosis. Stomach and bowel: Unremarkable. No obstruction. No mucosal thickening. Appendix: No evidence of appendicitis. Intraperitoneal space: Unremarkable. No free air. No significant fluid collection. Vasculature: Unremarkable. No abdominal aortic aneurysm. Lymph nodes: Few retroperitoneal lymph nodes measuring up to 1.3 cm at its maximum. Urinary bladder: Unremarkable as visualized. Reproductive: Prior hysterectomy. Bones/joints: Unremarkable. No acute fracture. Soft tissues: Unremarkable. IMPRESSION: Mass in the pancreatic head measuring approximately 3.6 x 3.7 cm. No fat plane between the duodenum and the pancreatic head. Interval placement of a biliary ductal stent and resolution of the intra hepatic biliary ductal dilatation. Electronically signed by: Charan Moore On 11/06/2020 22:10:45 PM
[2020-11-06] MEDS ORDERED: MORP15TA2 PO (23:49)
[2020-11-07] MEDS ORDERED: PERCOCET 5MG/325MG TAB PO ONE (00:45)
== END 2020-11-07 00:52 | disposition home or self-care (01) ==
LOC: M ED 18:02
DX: R10.11 Right upper quadrant pain (principal); Z79.899 Other long term (current) drug therapy
CPT/HCPCS: 74177; 76705; 80048; 80076; 81001; 83690; 85025; 96374; 99285; J2270; Q9963; Q9967

== ENCOUNTER 2020-12-02 20:54 | Emergency (ER) | payer OTHER ==
[~2020-12-02] VITALS: Ht 152.4 cm; Wt 68.0 kg
[~2020-12-02 20:54] MED LIST changes: +CREO12CA PO; +FAMO1TAB11 PO; +MORP15TA2 PO; +MORP15TASA PO; -OLAN10TA2 PO; +OLAN1TAB20 PO; +OXYC10TA12 PO; +OXYC1CAP PO; +SERT25TA85 PO; +sertraline
[2020-12-03 00:40] LABS: BASO # 0.1 10^3/uL (0.0-0.2); BASO % 0.6 % (0.0-1.0); EOS # 0.2 10^3/uL (0.0-0.5); EOS % 1.7 % (0.0-3.0); HEMATOCRIT 43.7 % (36.0-47.0); HEMOGLOBIN 14.2 g/dl (12.0-15.5); LYMPH # 2.4 10^3/uL (1.5-5.0); LYMPH % 27.1 % (24.0-44.0); MEAN CORPUSCULAR HEMOGLOBIN 27.8 pg (27.0-33.0); MEAN CORPUSCULAR HGB CONC 32.5 g/dl (32.0-36.5); MEAN CORPUSCULAR VOLUME 85.7 fl (80.0-96.0); MONO # 0.6 10^3/uL (0.0-0.8); MONO % 6.8 % (2.0-8.0); NEUTROPHILS # 5.5 10^3/uL (1.5-8.5); NEUTROPHILS % 63.5 % (36.0-66.0); PLATELET COUNT, AUTOMATED 294 10^3/uL (150-450); WHITE BLOOD COUNT 8.7 10^3/uL (4.0-10.0)
[2020-12-03] MEDS ORDERED: NS 1,000 ML IV ONE (00:55)
[2020-12-03] MEDS ORDERED: ONDANSETRON 4MG/2ML VIAL IV ONE (00:55)
[2020-12-03] MEDS ORDERED: ISOVUE-370 76% 100ML VIAL As Ordered ONE (01:08)
[2020-12-03 01:18] LABS: ALBUMIN 2.4 GM/DL (3.2-5.2); ALT/SGPT 32 U/L (12-78); BILIRUBIN,DIRECT 1.2 MG/DL (0.0-0.2); BILIRUBIN,TOTAL 1.3 MG/DL (0.2-1.0); BLOOD UREA NITROGEN 7 MG/DL (7-18); CALCIUM LEVEL 8.1 MG/DL (8.5-10.1); CARBON DIOXIDE LEVEL 31 MEQ/L (21-32); CHLORIDE LEVEL 104 MEQ/L (98-107); CREATININE FOR GFR 0.62 MG/DL (0.55-1.30); GLOMERULAR FILTRATION RATE > 60.0 (>51); GLUCOSE, FASTING 92 MG/DL (70-100); LIPASE 1168 U/L (73-393); POTASSIUM SERUM 4.1 MEQ/L (3.5-5.1); SODIUM LEVEL 140 MEQ/L (136-145); TOTAL PROTEIN 7.1 GM/DL (6.4-8.2)
[2020-12-03] MEDS: HYDROMORPHONE HCL 0.5 MG/ 0.5 ML SYRINGE (J1170 PER 1) IV PRN ×2 (01:25→04:02)
--- NOTE | 2020-12-03 02:22 | REPVR ---
PROCEDURE INFORMATION: Exam: CT Abdomen And Pelvis With Contrast Exam date and time: 12/03/2020 12:55 AM Age: 55 years old Clinical indication: Nausea and vomiting; Abdominal pain; Generalized; Prior surgery; Surgery date: 1-6 months; Surgery type: Colon resection & stent pancr; Additional info: Abdominal pain, nausea, vomiting TECHNIQUE: Imaging protocol: Computed tomography of the abdomen and pelvis with contrast. Radiation optimization: All CT scans at this facility use at least one of these dose optimization techniques: automated exposure control; mA and/or kV adjustment per patient size (includes targeted exams where dose is matched to clinical indication); or iterative reconstruction. Contrast material: ISO; Contrast volume: 100 ml; Contrast route: INTRAVENOUS (IV); COMPARISON: 1. CT ABD/PEL W/IV ORAL CONTRAS 2020-11-06 21:[address] ABD/PEL W/IV CONTRAST ONLY 2020-10-28 10:57 FINDINGS: Lungs: Dependent subsegmental pulmonary atelectasis. Liver: Severe fatty liver disease. Gallbladder and bile ducts: Extensive intrahepatic pneumobilia and gas in the biliary duct which is dilated measuring 2.5 cm. Pancreas: Pancreatic duct dilatation. Ill-defined mass with associated thickening and surrounding stranding around the duodenum and pancreatic uncinate process. The duodenal/pancreas mass appears larger in size than previously. Spleen: Normal. No splenomegaly. Adrenal glands: Normal. No mass. Kidneys and ureters: Normal. No hydronephrosis. Stomach and bowel: Mild colonic diverticulosis without evidence for acute diverticulitis. Proximal colectomy. Appendix: No evidence of appendicitis. Intraperitoneal space: Unremarkable. No free air. No significant fluid collection. Vasculature: The ductal stent could be occluded. Lymph nodes: Unremarkable. No enlarged lymph nodes. Urinary bladder: Unremarkable as visualized. Reproductive: Hysterectomy. Bones/joints: Unremarkable. No acute fracture. Soft tissues: Unremarkable. IMPRESSION: 1. Tumor progression with extensive intrahepatic pneumobilia and gas in the biliary duct which is dilated measuring 2.5 cm. The ductal stent could be occluded. 2. Pancreatic duct dilatation. Electronically signed by: Roberth Aldridge On 12/03/2020 02:21:43 AM
[2020-12-03 04:43] VITALS: BP 107/58
== END 2020-12-03 04:43 | disposition home or self-care (01) ==
LOC: M ED 20:54
DX: R10.9 Unspecified abdominal pain (principal); K86.9 Disease of pancreas, unspecified; Z85.038 Personal history of other malignant neoplasm of large intestine; Z79.01 Long term (current) use of anticoagulants; Z79.899 Other long term (current) drug therapy
CPT/HCPCS: 74177; 80048; 80076; 83690; 85025; 96361; 96374; 96375; 96376; 99284; J1170; J2405; Q9967

== ENCOUNTER 2020-12-07 21:48 | Emergency (ER) | payer OTHER ==
[~2020-12-07] VITALS: Ht 152.4 cm; Wt 64.9 kg
[2020-12-07] MEDS ORDERED: MORPHINE 4 MG/ML 1ML VIAL/SYRINGE (J2270) IV ONE (22:50)
[2020-12-07] MEDS ORDERED: NS 1,000 ML IV ONE (22:50)
[2020-12-07] MEDS ORDERED: ONDANSETRON 4MG/2ML VIAL IV ONE (22:50)
[2020-12-08 00:07] LABS: BASO # 0.1 10^3/uL (0.0-0.2); BASO % 0.9 % (0.0-1.0); EOS # 0.1 10^3/uL (0.0-0.5); EOS % 0.8 % (0.0-3.0); HEMATOCRIT 45.4 % (36.0-47.0); HEMOGLOBIN 14.8 g/dl (12.0-15.5); LYMPH # 2.3 10^3/uL (1.5-5.0); LYMPH % 29.1 % (24.0-44.0); MEAN CORPUSCULAR HEMOGLOBIN 27.5 pg (27.0-33.0); MEAN CORPUSCULAR HGB CONC 32.6 g/dl (32.0-36.5); MEAN CORPUSCULAR VOLUME 84.2 fl (80.0-96.0); MONO # 0.6 10^3/uL (0.0-0.8); MONO % 6.9 % (2.0-8.0); NEUTROPHILS # 4.9 10^3/uL (1.5-8.5); NEUTROPHILS % 61.8 % (36.0-66.0); PLATELET COUNT, AUTOMATED 340 10^3/uL (150-450); RED BLOOD COUNT 5.39 10^6/uL (4.00-5.40)
[2020-12-08 00:44] LABS: ALBUMIN 2.7 GM/DL (3.2-5.2); BILIRUBIN,TOTAL 1.3 MG/DL (0.2-1.0); TOTAL PROTEIN 7.7 GM/DL (6.4-8.2)
[2020-12-08] MEDS ORDERED: PROMETHAZINE INJ 25 MG/ML VIAL (J2550) IV ONE (01:10)
[2020-12-08 01:26] VITALS: BP 124/69
[2020-12-08] MEDS ORDERED: PROM25SU3 PR (01:38)
== END 2020-12-08 02:12 | disposition home or self-care (01) ==
LOC: M ED 21:48
DX: C25.9 Malignant neoplasm of pancreas, unspecified (principal); R10.9 Unspecified abdominal pain; R11.2 Nausea with vomiting, unspecified; C78.5 Secondary malignant neoplasm of large intestine and rectum; Z92.21 Personal history of antineoplastic chemotherapy; Z90.49 Acquired absence of other specified parts of digestive tract; Z79.01 Long term (current) use of anticoagulants; Z79.899 Other long term (current) drug therapy
CPT/HCPCS: 80047; 80076; 83690; 85025; 96361; 96374; 96375; 99284; J2270; J2405

== ENCOUNTER 2020-12-09 13:42 | Emergency (ER) | payer OTHER ==
[~2020-12-09] VITALS: Ht 152.4 cm; Wt 65.5 kg
[~2020-12-09 13:42] MED LIST changes: +PROM25SU3 PR
[2020-12-09] MEDS ORDERED: ONDANSETRON 4MG/2ML VIAL IV ONE (14:35)
[2020-12-09] MEDS ORDERED: MORPHINE 4 MG/ML 1ML VIAL/SYRINGE (J2270) IV ONE (14:35)
[2020-12-09] MEDS ORDERED: NS 1,000 ML IV ONE ×3 (14:35→17:50)
[2020-12-09] MEDS ORDERED: SCOPOLAMINE 1MG TRANSDERMAL PATCH TOP SCH (16:05)
[2020-12-09] MEDS ORDERED: ISOVUE-370 76% 100ML VIAL As Ordered ONE (16:10)
[2020-12-09 16:13] LABS: BASO # 0.1 10^3/uL (0.0-0.2); BASO % 0.7 % (0.0-1.0); EOS % 0.1 % (0.0-3.0); HEMATOCRIT 52.9 % (36.0-47.0); LYMPH # 2.2 10^3/uL (1.5-5.0); LYMPH % 19.4 % (24.0-44.0); MEAN CORPUSCULAR HEMOGLOBIN 27.4 pg (27.0-33.0); MEAN CORPUSCULAR HGB CONC 32.9 g/dl (32.0-36.5); MEAN CORPUSCULAR VOLUME 83.4 fl (80.0-96.0); MONO # 0.6 10^3/uL (0.0-0.8); MONO % 5.1 % (2.0-8.0); NEUTROPHILS # 8.3 10^3/uL (1.5-8.5); NEUTROPHILS % 74.3 % (36.0-66.0); PLATELET COUNT, AUTOMATED 436 10^3/uL (150-450); RED BLOOD COUNT 6.34 10^6/uL (4.00-5.40); WHITE BLOOD COUNT 11.1 10^3/uL (4.0-10.0)
[2020-12-09 16:14] LABS: HEMOGLOBIN 17.4 g/dl (12.0-15.5)
--- NOTE | 2020-12-09 16:40 | REP ---
INDICATION: pancreatic cancer with persistent emesis COMPARISON: 12/03/2020. TECHNIQUE: CT Scan of the abdomen and pelvis was performed with intravenous administration of 100 cc of Isovue 370, without oral contrast. Sagittal and coronal reconstruction images are performed. FINDINGS: Lung bases: There is a stable subcentimeter nodule right lower lobe. There are stable fibro atelectatic changes in the bilateral lung bases. Liver: Significant pneumobilia is again noted unchanged. A dense nodule in the left lobe of the liver and another in the right lobe of the liver are stable. Gallbladder: Prior cholecystectomy. Spleen: Normal. Adrenals: Normal. Pancreas: A pancreatic head mass is again noted. A stent is seen in the distal common bile duct in this region, extending into the duodenum. There is moderate dilatation of the pancreatic duct, unchanged. Kidneys: Normal. Small and large bowel: There has been partial resection of the right colon. There is no free air or bowel obstruction. Free fluid: None. Abdominal aorta: No aneurysm or dissection. Adenopathy: Multiple small lymph nodes around the pancreatic head and in the periaortic and pericaval regions are stable. Osseous structures: Unremarkable. Pelvis: No mass. There is a small ventral hernia containing noninflamed fat. IMPRESSION: Stable CT findings discussed in detail above. <Electronically signed by Lucius Damian > 12/09/20 [id number]
[2020-12-09 16:43] LABS: ALBUMIN 3.5 GM/DL (3.2-5.2); BILIRUBIN,TOTAL 1.4 MG/DL (0.2-1.0); TOTAL PROTEIN 9.6 GM/DL (6.4-8.2)
[2020-12-09 20:45] VITALS: BP 118/61
[2020-12-09 21:17] LABS: RSV AMPLIFICATION NEGATIVE (NEGATIVE)
[2020-12-09] MEDS ORDERED: PROMETHAZINE INJ 25 MG/ML VIAL (J2550) IV ONE (21:40)
== END 2020-12-09 21:55 | disposition short-term general hospital (02) ==
LOC: M ED 13:42
DX: C25.9 Malignant neoplasm of pancreas, unspecified (principal); K85.90 Acute pancreatitis without necrosis or infection, unspecified; R11.2 Nausea with vomiting, unspecified; Z90.49 Acquired absence of other specified parts of digestive tract; Z79.01 Long term (current) use of anticoagulants; Z79.899 Other long term (current) drug therapy
CPT/HCPCS: 74177; 80047; 80076; 82150; 83605; 83690; 85025; 87631; 93041; 96361; 96374; 96375; 99285; J2270; J2405; Q9967

== ENCOUNTER 2021-02-20 01:16 | Emergency (ER) | payer OTHER ==
[~2021-02-20] VITALS: Ht 152.4 cm; Wt 62.3 kg
[~2021-02-20 01:16] MED LIST changes: +CHIL160L2; +GABA250S6 PO; +LOVE1INJ2 SC; +OXYC1SOL3 PO
[2021-02-20 07:55] LABS: BASO # 0.1 10^3/uL (0.0-0.2); BASO % 0.3 % (0.0-1.0); EOS # 0.1 10^3/uL (0.0-0.5); EOS % 0.3 % (0.0-3.0); HEMATOCRIT 29.8 % (36.0-47.0); HEMOGLOBIN 9.2 g/dl (12.0-15.5); LYMPH # 1.3 10^3/uL (1.5-5.0); LYMPH % 7.8 % (24.0-44.0); MEAN CORPUSCULAR HEMOGLOBIN 24.9 pg (27.0-33.0); MEAN CORPUSCULAR HGB CONC 30.9 g/dl (32.0-36.5); MEAN CORPUSCULAR VOLUME 80.8 fl (80.0-96.0); MONO # 0.8 10^3/uL (0.0-0.8); NEUTROPHILS # 14.4 10^3/uL (1.5-8.5); NEUTROPHILS % 85.9 % (36.0-66.0); PLATELET COUNT, AUTOMATED 315 10^3/uL (150-450); RED BLOOD COUNT 3.69 10^6/uL (4.00-5.40); WHITE BLOOD COUNT 16.7 10^3/uL (4.0-10.0)
[2021-02-20] MEDS ORDERED: OXYC5SOL11 (08:19)
[2021-02-20] MEDS ORDERED: MORP1SOL5 PO (08:19)
[2021-02-20] MEDS ORDERED: FENT1DIS14 (08:19)
[2021-02-20] MEDS ORDERED: SODIUM CHLORIDE 0.9% INJ 10 ML SYR IV ONE (08:30)
[2021-02-20 08:33] LABS: ALT/SGPT 27 U/L (12-78); BILIRUBIN,DIRECT 2.1 MG/DL (0.0-0.2); BILIRUBIN,TOTAL 2.5 MG/DL (0.2-1.0); BLOOD UREA NITROGEN 16 MG/DL (7-18); CALCIUM LEVEL 8.7 MG/DL (8.5-10.1); CARBON DIOXIDE LEVEL 24 MEQ/L (21-32); CHLORIDE LEVEL 100 MEQ/L (98-107); CREATININE FOR GFR 0.53 MG/DL (0.55-1.30); GLOMERULAR FILTRATION RATE > 60.0 (>51); GLUCOSE, FASTING 224 MG/DL (70-100); LIPASE 329 U/L (73-393); POTASSIUM SERUM 4.2 MEQ/L (3.5-5.1); SODIUM LEVEL 134 MEQ/L (136-145); TOTAL PROTEIN 7.4 GM/DL (6.4-8.2)
[2021-02-20] MEDS ORDERED: SODIUM CHLORIDE 0.9% INJ 10 ML SYR IV SCH (09:00)
[2021-02-20 09:32] VITALS: BP 136/72
== END 2021-02-20 09:32 | disposition home or self-care (01) ==
LOC: M ED 01:16
DX: R74.8 Abnormal levels of other serum enzymes (principal); T85.590A Other mechanical complication of bile duct prosthesis, initial encounter; Z87.19 Personal history of other diseases of the digestive system; Z85.07 Personal history of malignant neoplasm of pancreas; Z92.21 Personal history of antineoplastic chemotherapy; Z90.49 Acquired absence of other specified parts of digestive tract; Z95.828 Presence of other vascular implants and grafts; Z93.1 Gastrostomy status; Z79.899 Other long term (current) drug therapy
CPT/HCPCS: 80048; 80076; 83605; 83690; 85025; 93041; 94760; 99285; J1642